=== PATIENT | female | born 1955 | race Caucasian/White ===

== ENCOUNTER → 2016-03-24 | Outpatient (CLI) | payer MEDICARE ==
--- NOTE | 2016-03-25 15:43 | WOMENS IMAGING REPORT ---
EXAM DESCRIPTION: BILAT SCREENING MAMMO W/CAD COMPLETED DATE/TIME: 03/25/2016 3:19 pm REASON FOR STUDY: ROUTINE BILATERAL SCREENIG;Z12.31 Z12.31 ENCNTR SCREEN MAMMOGRAM FOR MALIGNANT NE OPLASM OF MARGUERITE COMPARISON: 2008 to 2014 TECHNIQUE: Standard craniocaudal and mediolateral oblique views of each breast recorded using CNG-Onea l acquisition. LIMITATIONS: None. FINDINGS: No masses, calcifications or architectural distortion. No areas of suspicion. Read with the assistance of CAD. .[facility] - R2 Cenova Version 1.3 .[facility] - R2 Cenova Version 1.3 .[facility] - R2 Cenova Version 2.4 .[facility] [place] - R2 Cenova Version 2.4 .[facility] - R2 Boat Joiner Helper Version 9.2 BREAST DENSITY: b. There are scattered areas of fibroglandular density. BIRAD: 1 NEGATIVE RECOMMENDATION: ROUTINE SCREENING COMMENT: PATIENT NOTIFIED BY LETTER. The [employer] recommends an annual screening mammogram for women aged 40 years or over. Each patient will receive a reminder prior to the anniversary date of her mammogram. The [employer] (ACR) has developed recommendations for screening MRI of the breast s in certain patient populations, to be used in conjunction with mammography. Breast MRI surveillanc e may be appropriate for women with more than 20% lifetime risk of developing breast cancer as deter mined by genetic testing, significant family history of the disease, or history of mantle radiation f or Hodgkins Disease. ACR Practice Guidelines 2008. TECHNICAL DOCUMENTATION: FINDING NUMBER: (1) ASSESSMENT: (1) JOB ID: [id number] [employer]- All Rights Reserved
== END ==
LOC: WI 13:07
PROVIDERS: ATTEND Internal Medicine
DX: Z12.31 Encounter for screening mammogram for malignant neoplasm of breast (principal)
CPT/HCPCS: 77067; G0202

== ENCOUNTER → 2016-08-12 | Outpatient (CLI) | payer MEDICARE ==
--- NOTE | 2016-08-12 13:22 | RADIOLOGY REPORT (SQ) ---
EXAM DESCRIPTION: CAROTID DOPPLER COMPLETED DATE/TIME: 08/12/2016 11:41 am REASON FOR STUDY: RIGHT BRUIT R09.89 OTH SYMPTOMS AND SIGNS INVOLVING THE CIRC AND RESP SY COMPARISON: None. TECHNIQUE: Grayscale ultrasound, Doppler velocity and spectra, and color Doppler images acquired of the extra-cranial carotid and vertebral arteries. Images stored on PACS. LIMITATIONS: None. FINDINGS: RIGHT CAROTID CCA Velocities: Within normal limits. ICA Velocities Peak systolic 0.97 m/s. End diastolic 0.23 m/s. Proximal ICA/CCA peak systolic ratio 0.9. Heterogeneous plaque bulb and proximal ICA. LEFT CAROTID CCA Velocities: Within normal limits. ICA Velocities Peak systolic 1.22 m/s. End diastolic 0.29 m/s. Proximal ICA/CCA peak systolic ratio 1.0. Heterogeneous plaque in the bulb and proximal ICA. VERTEBRAL ARTERIES: Antegrade flow. Normal waveforms. SUBCLAVIAN ARTERIES: Not imaged. OTHER: No other significant finding. IMPRESSION: NO HEMODYNAMICALLY SIGNIFICANT STENOSIS. COMMENT: Quality ID #[id number]: Velocity criteria are extrapolated from the diameter data as defined by t he Society of Radiologists in Ultrasound Consensus Conference. Radiology 2003: 229; 340-346. TECHNICAL DOCUMENTATION: JOB ID: [id number] [employer]- All Rights Reserved
== END ==
LOC: SP 10:45
PROVIDERS: ATTEND Family Medicine
DX: R09.89 Other specified symptoms and signs involving the circulatory and respiratory systems (principal)
CPT/HCPCS: 93880

== ENCOUNTER 2016-12-10 11:26 | Emergency (ER) | payer MEDICARE ==
--- NOTE | 2016-12-10 11:51 | ER Document Report ---
ED Medical Screen (RME) - General Chief Complaint: Abdominal Pain Stated Complaint: LEFT SIDE PAIN Time Seen by Provider: 12/10/16 11:49 Notes: Patient states she has Marfan's and has had a previous aortic dissection treated at [place]. This was in 2009. She states she started today with left- sided chest pain that feels similar to when she had a dissection. TRAVEL OUTSIDE OF THE [place] IN LAST 30 DAYS: No - Related Data Allergies/Adverse Reactions: No Known Allergies Allergy (Verified 11/18/15 03:22) Past Medical History - Past Medical History Cardiac Medical History: Reports: Hx Coronary Artery Disease - stent, Hx Hypertension Denies: Hx Heart Attack Pulmonary Medical History: Reports: Hx COPD, Hx Pneumonia Denies: Hx Asthma, Hx Bronchitis Neurological Medical History: Denies: Hx Cerebrovascular Accident, Hx Seizures Renal/ Medical History: Denies: Hx Peritoneal Dialysis Malignancy Medical History: Reports: Hx Lung Cancer - remission Musculoskeltal Medical History: Reports Hx Arthritis Psychiatric Medical History: Reports: Hx Depression Past Surgical History: Reports: Hx Cardiac Surgery, Hx Cholecystectomy, Hx Coronary Stent, Hx Hysterectomy - Immunizations Hx Diphtheria, Pertussis, Tetanus Vaccination: Yes Physical Exam - Vital signs Vitals: Temp Pulse Resp BP Pulse Ox 97.3 F 63 16 177/61 H 100 12/10/16 11:12/10/16 11:12/10/16 11:12/10/16 11:12/10/16 11:29 Course - Vital Signs Vital signs: Temp Pulse Resp BP Pulse Ox 97.3 F 63 16 177/61 H 100 12/10/16 11:29 12/10/16 11:29 12/10/16 11:29 12/10/16 11:29 12/10/16 11:29
[2016-12-10 12:30] LABS: ABSOLUTE EOSINOPHILS # (AUTO) 0.1 10^3/uL (0.0-0.6); ABSOLUTE LYMPHOCYTES (AUTO) 0.9 10^3/uL (0.5-4.7); ABSOLUTE MONOCYTES (AUTO) 0.2 10^3/uL (0.1-1.4); BASOPHILS % (AUTO) 0.8 % (0-2); EOSINOPHILS % (AUTO) 1.7 % (0-6); HEMATOCRIT 39.8 % (36.0-47.0); HEMOGLOBIN 13.6 g/dL (12.0-15.5); LYMPHOCYTES % (AUTO) 28.6 % (13-45); MEAN CORPUSCULAR HEMOGLOBIN 31.4 pg (27.0-33.4); MEAN CORPUSCULAR HGB CONC 34.1 g/dL (32.0-36.0); MEAN CORPUSCULAR VOLUME 92 fl (80-97); MONOCYTES % (AUTO) 7.4 % (3-13); RED BLOOD COUNT 4.32 10^6/uL (3.72-5.28); RED CELL DISTRIBUTION WIDTH 13.1 % (11.5-14.0); SEGMENTED NEUTROPHILS % (AUTO) 61.5 % (42-78); WHITE BLOOD COUNT 3.3 10^3/uL (4.0-10.5)
--- NOTE | 2016-12-10 12:42 | EKG REPORT ---
SEVERITY:- ABNORMAL ECG - SINUS RHYTHM ATRIAL PREMATURE COMPLEX RIGHT BUNDLE BRANCH BLOCK : Confirmed by: Jarret Dang MD 10-Dec-2016 12:41:11
[2016-12-10 12:47] LABS: ALANINE AMINOTRANSFERASE 12 U/L (9-52); ALKALINE PHOSPHATASE 182 U/L (38-126); ANION GAP 11 (5-19); ASPARTATE AMINO TRANSFERASE 15 U/L (14-36); BILIRUBIN,DIRECT 0.3 mg/dL (0.0-0.4); BILIRUBIN,TOTAL 0.4 mg/dL (0.2-1.3); BLOOD UREA NITROGEN 10 mg/dL (7-20); CARBON DIOXIDE 26 mmol/L (22-30); CHLORIDE 103 mmol/L (98-107); CREATININE RESULT 0.62 mg/dL (0.52-1.25); GLUCOSE 81 mg/dL (75-110); POTASSIUM 3.9 mmol/L (3.6-5.0); SODIUM 140.3 mmol/L (137-145); TOTAL PROTEIN 6.5 g/dL (6.3-8.2)
[2016-12-10] MEDS ORDERED: MORPHINE SULFATE 10 MG/ML INJ IV ONE ×3 (12:54→15:42)
--- NOTE | 2016-12-10 14:31 | RADIOLOGY REPORT (SQ) ---
EXAM DESCRIPTION: CTA CHEST; CTA ABDOMEN COMPLETED DATE/TIME: 12/10/2016 1:40 pm REASON FOR STUDY: marfans w/hx dissection COMPARISON: None. TECHNIQUE: CT scan of the chest performed using helical scanning technique with dynamic intravenous contrast injection. Images reviewed with lung, soft tissue and bone windows. Reconstructed coronal and sagittal MPR images reviewed. CT angio of the abdomen was performed from the diaphragms through the iliac bifurcations, using helic al technique with dynamic contrast injection. Images reviewed with lung soft tissue and bone windows . Reconstructed coronal and sagittal MPR images reviewed. No oral contrast Additional 3 dimensional post-processing performed to develop Maximal Intensity Projection images (AZ P). All images stored on PACS. All CT scanners at this facility use dose modulation, iterative reconstruction, and/or weight based d osing when appropriate to reduce radiation dose to as low as reasonably achievable (ALARA). [facility]: Dose Right [facility]: CareDose [facility]: Dose Right [facility]: Teradose 4D [facility]: [facility] [employer] CONTRAST TYPE AND DOSE: contrast/concentration: Isovue 370.00 mg/ml; Total Contrast Delivered: 65.0 ml; Total Saline Delivered: 76.0 ml Contrast bolus optimized for the pulmonary arteries. Not diagnostic for the aorta. RENAL FUNCTION: Creatinine 0.6 RADIATION DOSE: Up-to-date CT equipment and radiation dose reduction techniques were employed. CTDIv ol: 7.7 - 17.0 mGy. DLP: 741 mGy-cm. . LIMITATIONS: Contrast bolus optimized for the aorta, not the pulmonary arteries FINDINGS: A thoracic aortic dissection is present, with a stent graft along the descending thoracic aorta, distal to the origin of the great vessels. The ascending aorta is abnormal, with a dissection from the level of the aortic root extending throug h the origins of the great vessels. The false lumen opacifies with contrast, to the same degree as t he true lumen, in a similar manner as compared to CT angio chest 11/18/2015. Ascending aorta maximal diameter is 3.3 cm, similar compared to 11/18/2015. The ascending aorta dissection extends into the proximal brachiocephalic artery. The mid and distal brachiocephalic artery are normal. The left common carotid artery, left subclavian artery are unrema rkable. In the abdomen, the abdominal aorta is normal caliber without evidence of dissection. There is ather osclerotic calcification at the origin of the celiac and superior mesenteric arteries with about 50% diameter narrowing, stable. Proximal common iliac arteries have heavy atherosclerotic calcification with at least 50% diameter na rrowing on the right, stable. LUNGS AND PLEURA: No masses, infiltrates, pneumothorax. No pleural effusions, calcifications. Biapi ofelia pleural-parenchymal scarring. Basilar small bulla or blebs. AORTA AND GREAT VESSELS: As above HEART: No pericardial effusion. No significant coronary artery calcifications. PULMONARY ARTERIES: No gross pulmonary emboli. Limited contrast bolus. HILAR AND MEDIASTINAL STRUCTURES: No identified masses or abnormal nodes. HARDWARE: None in the chest. LIVER: Normal size. Small hepatic cysts. No masses or dilated ducts. Air in left-sided intrahepatic bile ducts likely post sphincterotomy. SPLEEN: Normal size. No focal lesions. PANCREAS: No masses. No significant calcifications. No adjacent inflammation or peripancreatic fluid collections. Pancreatic duct not dilated. GALLBLADDER: Surgically absent. ADRENAL GLANDS: No significant masses or asymmetry. RIGHT KIDNEY AND URETER: No mass, calculi or urinary tract obstruction. LEFT KIDNEY AND URETER: No mass, calculi or urinary tract obstruction. RETROPERITONEUM: No retroperitoneal adenopathy, hemorrhage or masses. BOWEL AND PERITONEAL CAVITY: No free intraperitoneal air or fluid large amount of stool in the ascen ding and transverse colon. Stomach, small bowel unremarkable. APPENDIX: Not visualized. BONES: No acute or significant finding. Lower lumbar fusion with hardware. Advanced degenerative di sc changes at L1-2, and L3-4. 3D MIPS: Confirm above findings. OTHER: No other significant finding. IMPRESSION: Stable thoracic aortic dissection No CT evidence of abdominal aortic aneurysm or dissection COMMENT: Quality ID # [id number]: Final reports with documentation of one or more dose reduction techniques (e.g., Automated exposure control, adjustment of the mA and/or kV according to patient size, use of iterative reconstruction technique) TECHNICAL DOCUMENTATION: JOB ID: [id number] [employer]- All Rights Reserved
--- NOTE | 2016-12-10 15:38 | ER Document Report ---
ED GI/ - General Chief Complaint: Abdominal Pain Stated Complaint: LEFT SIDE PAIN Time Seen by Provider: 12/10/16 11:49 Mode of Arrival: Ambulatory Information source: Patient Notes: Female with Marfan's disease and history of an ascending thoracic aortic dissection who presents to the ER today for left-sided chest pain radiating straight through to her back and left arm that began approximately 1 week ago but has gradually worsened since that time. Patient had graft placed for her dissection in 2009 at [facility]. She denies any shortness of breath or nausea/ vomiting with this chest pain. She states that she has not been back to follow- up since that time because she "almost on the table" and is scared to go back. She denies any injury. TRAVEL OUTSIDE OF THE [place] IN LAST 30 DAYS: No - Related Data Allergies/Adverse Reactions: No Known Allergies Allergy (Verified 11/18/15 03:22) Past Medical History - General Information source: Patient - Social History Smoking Status: Unknown if Ever Smoked Frequency of alcohol use: Occasional Drug Abuse: None Family History: Reviewed & Not Pertinent Patient has suicidal ideation: No Patient has homicidal ideation: No - Past Medical History Cardiac Medical History: Reports: Hx Coronary Artery Disease - stent, Hx Hypertension Denies: Hx Heart Attack Pulmonary Medical History: Reports: Hx COPD, Hx Pneumonia Denies: Hx Asthma, Hx Bronchitis Neurological Medical History: Denies: Hx Cerebrovascular Accident, Hx Seizures Renal/ Medical History: Denies: Hx Peritoneal Dialysis Malignancy Medical History: Reports: Hx Lung Cancer - remission Musculoskeltal Medical History: Reports Hx Arthritis Psychiatric Medical History: Reports: Hx Depression Past Surgical History: Reports: Hx Cardiac Surgery, Hx Cholecystectomy, Hx Coronary Stent, Hx Hysterectomy - Immunizations Hx Diphtheria, Pertussis, Tetanus Vaccination: Yes Hx Pneumococcal Vaccination: 12/25/09 Review of Systems - Review of Systems Constitutional: No symptoms reported EENT: No symptoms reported Cardiovascular: See HPI Respiratory: No symptoms reported Gastrointestinal: No symptoms reported Genitourinary: No symptoms reported Female Genitourinary: No symptoms reported Musculoskeletal: No symptoms reported Skin: No symptoms reported Hematologic/Lymphatic: No symptoms reported Neurological/Psychological: No symptoms reported Physical Exam - Vital signs Vitals: Temp Pulse Resp BP Pulse Ox 97.3 F 63 16 177/61 H 100 12/10/16 11:29 12/10/16 11:29 12/10/16 11:29 12/10/16 11:29 12/10/16 11:29 - Notes Notes: PHYSICAL EXAMINATION: GENERAL: Uncomfortable appearing, but in no acute distress. HEAD: Atraumatic, normocephalic. EYES: Pupils equal round and reactive to light, extraocular movements intact, sclera anicteric, conjunctiva are normal. NECK: Normal range of motion, supple without lymphadenopathy LUNGS: CTAB and equal. No wheezes rales or rhonchi. HEART: Chest nontender to palpation, regular rate and rhythm without murmurs ABDOMEN: Soft, no tenderness. No guarding, no rebound BACK: no vertebral tenderness, normal ROM GI/: no CVA tenderness EXTREMITIES: Normal range of motion, no pitting edema. No cyanosis. NEUROLOGICAL: Cranial nerves grossly intact. Normal sensory/motor exams. PSYCH: Normal mood, normal affect. SKIN: Warm, Dry, normal turgor, no rashes or lesions noted Course - Re-evaluation Re-evalutation: 12/10/16 15:43 Patient's lab work is unremarkable today, including cardiac enzymes that are normal. EKG reveals a normal sinus rhythm no evidence of ischemia. I consulted with Dr. Quick who actually performed patient's aortic dissection surgery in 2009, he states that according to the CTA of the abdomen/pelvis and chest today her ascending thoracic aortic dissection is stable and there is no leak or acute change, he advises that she follow-up in the office, he has not seen her in 7 years. He made her an appointment for next week. Patient states that she will go to that. - Vital Signs Vital signs: Temp Pulse Resp BP Pulse Ox 98 F 63 15 121/56 L 98 12/10/16 16:44 12/10/16 16:44 12/10/16 16:44 12/10/16 16:44 12/10/16 16:44 - Laboratory Result Diagrams: 12/10/16 12:15 12/10/16 12:15 Laboratory results interpreted by me: 12/10/16 12/10/16 12:15 12:15 WBC 3.3 L Alkaline Phosphatase 182 H Discharge - Discharge Clinical Impression: History of aortic dissection Chest pain Qualifiers: Chest pain type: unspecified Qualified Code(s): R07.9 - Chest pain, unspecified Condition: Stable Disposition: HOME, SELF-CARE Additional Instructions: Call Dr. Quick' office TODAY at [phone] and make an appt next week! He has told the office to make this appt for you. Return immediately for any new or worsening symptoms. Follow up with primary care provider, call tomorrow to make followup appointment. Prescriptions: Oxycodone HCl/Acetaminophen [Percocet 5-325 mg Tablet] 1 tab PO Q4 PRN #15 tab PRN Reason:
[2016-12-10 16:44] VITALS: BP 121/56
[2016-12-10] MEDS ORDERED: ONDANSETRON 4 MG TAB.RAPDIS PO ONE (16:48)
== END 2016-12-10 17:01 | disposition home or self-care (01) ==
LOC: ER 11:26
DX: I71.01 Dissection of thoracic aorta (principal); Z98.890 Other specified postprocedural states; R07.9 Chest pain, unspecified; I25.10 Atherosclerotic heart disease of native coronary artery without angina pectoris; I10 Essential (primary) hypertension; J44.9 Chronic obstructive pulmonary disease, unspecified; Z95.5 Presence of coronary angioplasty implant and graft; Z87.01 Personal history of pneumonia (recurrent); Z85.3 Personal history of malignant neoplasm of breast
CPT/HCPCS: 93005; 99285; 36415; 85025; 80053; 84484; 71275; 74175; 93010; A9270; J2270; S0119

== ENCOUNTER → 2016-12-30 | Outpatient (CLI) | payer MEDICARE ==
--- NOTE | 2016-12-31 08:53 | RADIOLOGY REPORT (SQ) ---
EXAM DESCRIPTION: MRI CERVICAL SPINE WITHOUT COMPLETED DATE/TIME: 12/30/2016 7:20 pm REASON FOR STUDY: CERVICAL RADICULOPATHY M54.12 RADICULOPATHY, CERVICAL REGION COMPARISON: MRI cervical spine 04/09/2015 CT cervical spine 01/14/2012, 08/13/2011 TECHNIQUE: Sagittal and Axial imaging includes T1, T2, STIR and gradient echo sequences. LIMITATIONS: None. FINDINGS: ALIGNMENT: There is reversal of cervical lordosis, and mild anterolisthesis of C3 over C4 related to degenerative disc changes and facet arthropathy VERTEBRAE: Intact. BONE MARROW: Normal. No marrow replacement or reactive changes. DISCS: High-grade disc space loss of height with vacuum phenomenon at C4-5, C5-6, and C6-7. HARDWARE: None in the spine. CORD AND BASE OF BRAIN: Normal in size and signal intensity. SOFT TISSUES: No soft tissue masses. C1-C2: No significant spinal stenosis. C2-C3: No significant spinal stenosis or exit foraminal stenosis. C3-C4: Broad diffuse mild disc bulge and mild anterolisthesis of C3 over C4 without central stenosis. Moderate to high-grade right and left foraminal narrowing. C4-C5: Broad diffuse posterior disc bulge and bony spurring is present, partly effacing the ventral t hecal sac without abutting the cord or causing cord flattening. Borderline central canal narrowing. High-grade high-grade right and left foraminal narrowing from facet and uncovertebral hypertrophy. C5-C6: Broad diffuse posterior disc bulge and bony spurring partly effaces the ventral thecal sac wit hout abutting the cord or causing cord flattening. Mild central canal narrowing. High-grade bilater al foraminal narrowing from facet and uncovertebral hypertrophy C6-C7: Minimal posterior disc bulge and bony spurring is present without central stenosis. Moderate to high-grade bilateral foraminal narrowing is present from facet and uncovertebral hypertrophy. C7-T1: No significant spinal stenosis or exit foraminal stenosis. UPPER THORACIC: Incompletely imaged. No significant spinal stenosis or exit foraminal stenosis. OTHER: No other significant finding. IMPRESSION: Multilevel degenerative changes with multilevel foraminal stenosis, similar compared to previous studies TECHNICAL DOCUMENTATION: JOB ID: [id number]- All Rights Reserved
== END ==
LOC: RAD 18:32
PROVIDERS: ATTEND Physical Medicine & Rehabilitation Pain Medicine
DX: M54.12 Radiculopathy, cervical region (principal)
CPT/HCPCS: 72141

== ENCOUNTER 2017-10-25 05:01 | Observation (INO) | payer MEDICARE ==
[2017-10-25] MEDS ORDERED: NORMAL SALINE 500 ML IV ONE (05:30)
[2017-10-25] MEDS ORDERED: ONDANSETRON HCL INJ/PF 4 MG/2 ML SDV IV ONE ×3 (05:31→09:00)
--- NOTE | 2017-10-25 05:36 | ER Document Report ---
ED General - General Chief Complaint: Nausea/Vomiting Stated Complaint: STOMACH PAIN Time Seen by Provider: 10/25/17 05:27 Mode of Arrival: Ambulatory Information source: Patient Notes: Patient is a 62-year-old female who presents with chief complaint of abdominal pain with vomiting that started at 11 PM. Patient reports that she has been vomiting nonstop since then. Patient also reports sternal chest pain has developed after multiple episodes of vomiting. Patient does report history of CABG with one stent placement. Patient dry heaving during exam. Patient denies any fever. Exam: Tenderness to palpation to left chest wall. Generalized tenderness to palpation to entire abdomen. I have greeted and performed a rapid initial assessment of this patient. A comprehensive ED assessment and evaluation of the patient, analysis of test results and completion of the medical decision making process will be conducted by additional ED providers. Dictation of this chart was performed using voice recognition software; therefore, there may be some unintended grammatical errors. TRAVEL OUTSIDE OF THE [place] IN LAST 30 DAYS: No - Related Data Allergies/Adverse Reactions: No Known Allergies Allergy (Verified 10/25/17 05:04) Past Medical History - Social History Smoking Status: Never Smoker Family History: Reviewed & Not Pertinent Patient has suicidal ideation: No Patient has homicidal ideation: No - Past Medical History Cardiac Medical History: Reports: Hx Coronary Artery Disease - stent, Hx Hypertension Denies: Hx Heart Attack Pulmonary Medical History: Reports: Hx COPD, Hx Pneumonia Denies: Hx Asthma, Hx Bronchitis Neurological Medical History: Denies: Hx Cerebrovascular Accident, Hx Seizures Renal/ Medical History: Denies: Hx Peritoneal Dialysis Malignancy Medical History: Reports: Hx Lung Cancer - remission Musculoskeletal Medical History: Reports Hx Arthritis Psychiatric Medical History: Reports: Hx Depression Past Surgical History: Reports: Hx Cardiac Surgery, Hx Cholecystectomy, Hx Coronary Stent, Hx Hysterectomy - Immunizations Hx Diphtheria, Pertussis, Tetanus Vaccination: Yes Hx Pneumococcal Vaccination: 12/25/09 Physical Exam - Vital signs Vitals: Temp Pulse Resp BP Pulse Ox 97.6 F 77 20 123/51 L 100 10/25/17 05:05 10/25/17 05:05 10/25/17 05:05 10/25/17 05:05 10/25/17 05:05 Course - Vital Signs Vital signs: Temp Pulse Resp BP Pulse Ox 97.6 F 77 20 123/51 L 100 10/25/17 05:05 10/25/17 05:05 10/25/17 05:05 10/25/17 05:05 10/25/17 05:05
[2017-10-25 05:59] LABS: ABSOLUTE LYMPHOCYTES (AUTO) 0.8 10^3/uL (0.5-4.7); ABSOLUTE MONOCYTES (AUTO) 0.4 10^3/uL (0.1-1.4); ABSOLUTE NEUT (AUTO) 5.7 10^3/uL (1.7-8.2); BASOPHILS % (AUTO) 0.4 % (0-2); EOSINOPHILS % (AUTO) 0.5 % (0-6); HEMATOCRIT 42.9 % (36.0-47.0); HEMOGLOBIN 14.3 g/dL (12.0-15.5); LYMPHOCYTES % (AUTO) 11.4 % (13-45); MEAN CORPUSCULAR HEMOGLOBIN 30.2 pg (27.0-33.4); MEAN CORPUSCULAR HGB CONC 33.3 g/dL (32.0-36.0); MEAN CORPUSCULAR VOLUME 91 fl (80-97); MONOCYTES % (AUTO) 5.3 % (3-13); PLATELET COUNT 230 10^3/uL (150-450); RED BLOOD COUNT 4.73 10^6/uL (3.72-5.28); RED CELL DISTRIBUTION WIDTH 13.3 % (11.5-14.0); SEGMENTED NEUTROPHILS % (AUTO) 82.4 % (42-78); TOTAL CELLS COUNTED % (AUTO) 100 %; WHITE BLOOD COUNT 6.9 10^3/uL (4.0-10.5)
[2017-10-25] MEDS ORDERED: MORPHINE SULFATE 10 MG/ML INJ IV ONE ×2 (06:18→09:00)
[2017-10-25] MEDS ORDERED: NITROGLYCERIN 2% OINTMENT 1 GM PACKET TP ONE (06:18)
--- NOTE | 2017-10-25 06:23 | ER Document Report ---
ED General - General Chief Complaint: Nausea/Vomiting Stated Complaint: STOMACH PAIN Time Seen by Provider: 10/25/17 05:27 Mode of Arrival: Ambulatory Notes: This is a 62-year-old female patient uncontrolled hypertensive, history of Marfan's with history of aortic dissection status post surgery complaining of severe pain in her chest and abdomen. Nausea and vomiting. Has not been taking any of her medications. Seen by her local primary care doctor and was diagnosed with "infections in both my big toes". thinks that she has infection in her toes because they are turning colors. Patient states that her feet are painful all of the time having pain in her toes right now. Symptoms have been getting worse. Began complaining of worsening abdominal pain and chest pain today. Does not think that she is on any blood thinners but not certain. Only thing that she regularly takes is some oxycodone for her pain TRAVEL OUTSIDE OF THE [place] IN LAST 30 DAYS: No - HPI Onset: Just prior to arrival Onset/Duration: Sudden, Persistent - Related Data Allergies/Adverse Reactions: No Known Allergies Allergy (Verified 10/25/17 05:04) Past Medical History - General Information source: Patient - Social History Smoking Status: Never Smoker Cigarette use (# per day): No Frequency of alcohol use: None Drug Abuse: None Lives with: Family Family History: Reviewed & Not Pertinent Patient has suicidal ideation: No Patient has homicidal ideation: No - Past Medical History Cardiac Medical History: Reports: Hx Coronary Artery Disease - stent, Hx Hypertension, Other - Aortic dissection Denies: Hx Heart Attack Pulmonary Medical History: Reports: Hx COPD, Hx Pneumonia Denies: Hx Asthma, Hx Bronchitis Neurological Medical History: Denies: Hx Cerebrovascular Accident, Hx Seizures Renal/ Medical History: Denies: Hx Peritoneal Dialysis Malignancy Medical History: Reports: Hx Lung Cancer - remission Musculoskeletal Medical History: Reports Hx Arthritis Psychiatric Medical History: Reports: Hx Depression Past Surgical History: Reports: Hx Cardiac Surgery, Hx Cholecystectomy, Hx Coronary Stent, Hx Hysterectomy - Immunizations Hx Diphtheria, Pertussis, Tetanus Vaccination: Yes Hx Pneumococcal Vaccination: 12/25/09 Review of Systems - Review of Systems Constitutional: denies: Fever, Malaise, Weakness EENT: denies: Ear pain, Difficulty swallowing, Mouth pain Cardiovascular: Chest pain, Palpitations, Heart racing Respiratory: denies: Cough, Hurts to breathe, Short of breath, Wheezing Gastrointestinal: Abdominal pain, Nausea, Vomiting. denies: Diarrhea, Constipation Genitourinary: denies: Burning, Dysuria, Discharge Musculoskeletal: Back pain, Other - Pain, discoloration of toes. denies: Muscle pain, Leg swelling Skin: Change in color - Of her bilateral great toes. denies: Lesions, Rash Hematologic/Lymphatic: Blood clots. denies: Easy bleeding, Easy bruising Neurological/Psychological: denies: Confusion, Weakness, Numbness Physical Exam - Vital signs Vitals: Temp Pulse Resp BP Pulse Ox 97.6 F 77 20 123/51 L 100 10/25/17 05:05 10/25/17 05:05 10/25/17 05:05 10/25/17 05:05 10/25/17 05:05 Interpretation: Normal - General General appearance: Appears well, Alert In distress: Moderate - Due to pain in the chest and abdomen - HEENT Head: Normocephalic, Atraumatic Eyes: Normal Pupils: PERRL - Respiratory Respiratory status: No respiratory distress Chest status: Nontender Breath sounds: Normal Chest palpation: Normal - Cardiovascular Rhythm: Regular Heart sounds: Normal auscultation Murmur: No - Abdominal Inspection: Normal Distension: No distension Bowel sounds: Normal Tenderness: Nontender Organomegaly: No organomegaly - Back Back: Normal, Nontender - Extremities General upper extremity: Normal inspection, Nontender, Normal color, Normal ROM , Normal temperature General lower extremity: Nontender, Normal ROM, Normal temperature, Other - The bilateral lower extremity great toes have discoloration subungually on the great toes there are decreased pulses of the dorsalis pedis and posterior tibialis bilaterally.. No: Pooja's sign - Neurological Neuro grossly intact: Yes Cognition: Normal Orientation: AAOx4 Kee Coma Scale Eye Opening: Spontaneous [place] Coma Scale Verbal: Oriented [place] Coma Scale Motor: Obeys Commands [place] Coma Scale Total: 15 Speech: Normal Motor strength normal: LUE, RUE, LLE, RLE Sensory: Normal - Psychological Associated symptoms: Normal affect, Normal mood - Skin Skin Temperature: Warm Skin Moisture: Dry Skin Color: Normal Course - Re-evaluation Re-evalutation: 10/25/17 07:07 Definitely concerning presentation in the setting of chest pain and abdominal pain with history of aortic dissection and hypertension. Immediately put on Nitropaste just to attempt to get her blood pressure down quickly. Heart rate is in the 80s. May transition over to a Cardene drip shortly if there is any evidence on CT of dissection. Yet can see the stent placed in the aortic arch. Will order basic labs at this time. Pain control and reassess. 10/25/17 09:18 Laboratory 10/25/17 10/25/17 10/25/17 05:46 05:46 05:46 WBC 6.9 RBC 4.73 Hgb 14.3 Hct 42.9 MCV 91 MCH 30.2 MCHC 33.3 RDW 13.3 Plt Count 230 Seg Neutrophils % 82.4 H Lymphocytes % 11.4 L Monocytes % 5.3 Eosinophils % 0.5 Basophils % 0.4 Absolute Neutrophils 5.7 Absolute Lymphocytes 0.8 Absolute Monocytes 0.4 Absolute Eosinophils 0.0 Absolute Basophils 0.0 PT INR APTT Sodium 143.7 Potassium 3.8 Chloride 100 Carbon Dioxide 30 Anion Gap 14 BUN 14 Creatinine 0.63 Est GFR ( Amer) > 60 Est GFR (Non-Af Amer) > 60 Glucose 164 H Lactic Acid Calcium 9.6 Total Bilirubin 0.6 Direct Bilirubin 0.3 Neonat Total Bilirubin Not Reportable Neonat Direct Bilirubin Not Reportable Neonat Indirect Bili Not Reportable AST 39 H ALT 24 Alkaline Phosphatase 223 H Creatine Kinase 31 CK-MB (CK-2) 1.77 Troponin I < 0.012 Total Protein 8.2 Albumin 4.6 Lipase 19.0 L Urine Color Urine Appearance Urine pH Ur Specific Vaugh[place] Urine Protein Urine Glucose (UA) Urine Ketones Urine Blood Urine Nitrite Urine Bilirubin Urine Urobilinogen Ur Leukocyte Esterase Urine WBC (Auto) Urine RBC (Auto) U Hyaline Cast (Auto) Urine Mucus (Auto) Urine Ascorbic Acid 10/25/17 10/25/17 10/25/17 05:46 07:32 07:51 WBC RBC Hgb Hct MCV MCH MCHC RDW Plt Count Seg Neutrophils % Lymphocytes % Monocytes % Eosinophils % Basophils % Absolute Neutrophils Absolute Lymphocytes Absolute Monocytes Absolute Eosinophils Absolute Basophils PT 13.0 INR 0.94 APTT 27.5 Sodium Potassium Chloride Carbon Dioxide Anion Gap BUN Creatinine Est GFR ( Amer) Est GFR (Non-Af Amer) Glucose Lactic Acid 2.1 Calcium Total Bilirubin Direct Bilirubin Neonat Total Bilirubin Neonat Direct Bilirubin Neonat Indirect Bili AST ALT Alkaline Phosphatase Creatine Kinase CK-MB (CK-2) Troponin I Total Protein Albumin Lipase Urine Color YELLOW Urine Appearance CLEAR Urine pH 7.0 Ur Specific Vaugh[place] 1.036 Urine Protein NEGATIVE Urine Glucose (UA) NEGATIVE Urine Ketones NEGATIVE Urine Blood NEGATIVE Urine Nitrite NEGATIVE Urine Bilirubin NEGATIVE Urine Urobilinogen NEGATIVE Ur Leukocyte Esterase NEGATIVE Urine WBC (Auto) 1 Urine RBC (Auto) 1 U Hyaline Cast (Auto) 7 Urine Mucus (Auto) RARE Urine Ascorbic Acid NEGATIVE Chest X-Ray 10/25/17 05:40 IMPRESSION: No acute cardiopulmonary findings. Abdomen/Pelvis CTA 10/25/17 06:19 IMPRESSION: Minimal increase in diameter of the thoracic aorta at the level of the thoracic arch, now 3.8 cm in diameter (was 3.3 cm in diameter 12/10/2016). Otherwise stable appearance of chest abdomen pelvis compared to 12/10/2016 with previously treated thoracic aortic dissection. No abdominal aortic aneurysm or dissection Chest/Abdomen CTA 10/25/17 06:19 IMPRESSION: Minimal increase in diameter of the thoracic aorta at the level of the thoracic arch, now 3.8 cm in diameter (was 3.3 cm in diameter 12/10/2016). Otherwise stable appearance of chest abdomen pelvis compared to 12/10/2016 with previously treated thoracic aortic dissection. No abdominal aortic aneurysm or dissection CT reveals older findings of her aorta. No signs of bowel obstruction at this time. Patient's pain is much better. At this time will place in the hospital for repeat troponin, pain control and reassess. Consulted hospitalist who agrees to admit at this time. - Vital Signs Vital signs: Temp Pulse Resp BP Pulse Ox 97.6 F 77 13 139/57 H 97 10/25/17 05:05 10/25/17 05:05 10/25/17 08:00 10/25/17 06:39 10/25/17 08:00 - Laboratory Result Diagrams: 10/25/17 05:46 10/25/17 05:46 Laboratory results interpreted by me: 10/25/17 10/25/17 05:46 05:46 Seg Neutrophils % 82.4 H Lymphocytes % 11.4 L Glucose 164 H AST 39 H Alkaline Phosphatase 223 H Lipase 19.0 L - EKG Interpretation by [place] EKG shows normal: Intervals, QRS Complexes, ST-T Waves [place]/QRS: RBBB Discharge - Discharge Clinical Impression: Chest pain Qualifiers: Chest pain type: unspecified Qualified Code(s): R07.9 - Chest pain, unspecified Abdominal pain Qualifiers: Abdominal location: generalized Qualified Code(s): R10.84 - Generalized abdominal pain Condition: Good Disposition: ADMITTED INPATIENT Admitting Provider: Karma Condon Unit Admitted: Telemetry
[2017-10-25 06:29] LABS: INTERNATIONAL RATION (INR) 0.94
[2017-10-25 06:30] LABS: PARTIAL THROMBOPLASTIN TIME 27.5 SEC (23.5-35.8)
[2017-10-25 06:35] LABS: ALANINE AMINOTRANSFERASE 24 U/L (9-52); ALBUMIN 4.6 g/dL (3.5-5.0); ALKALINE PHOSPHATASE 223 U/L (38-126); ANION GAP 14 (5-19); ASPARTATE AMINO TRANSFERASE 39 U/L (14-36); BILIRUBIN,DIRECT 0.3 mg/dL (0.0-0.4); BILIRUBIN,TOTAL 0.6 mg/dL (0.2-1.3); BLOOD UREA NITROGEN 14 mg/dL (7-20); CALCIUM 9.6 mg/dL (8.4-10.2); CARBON DIOXIDE 30 mmol/L (22-30); CHLORIDE 100 mmol/L (98-107); CREATINE KINASE 31 U/L (30-135); GLUCOSE 164 mg/dL (75-110); POTASSIUM 3.8 mmol/L (3.6-5.0); SODIUM 143.7 mmol/L (137-145); TOTAL PROTEIN 8.2 g/dL (6.3-8.2)
[2017-10-25 06:47] LABS: CREATINE KINASE MB 1.77 ng/mL (<4.55)
[2017-10-25 06:49] LABS: TROPONIN I < 0.012 ng/mL
--- NOTE | 2017-10-25 06:52 | EKG REPORT ---
SEVERITY:- ABNORMAL ECG - SINUS RHYTHM RIGHT ATRIAL ABNORMALITY RIGHT BUNDLE BRANCH BLOCK : Confirmed by: Roger Rasmussen 25-Oct-2017 06:51:23
--- NOTE | 2017-10-25 07:05 | RADIOLOGY REPORT (SQ) ---
EXAM DESCRIPTION: XR CHEST 1 VIEW COMPLETED DATE/TME: 10/25/2017 05:40 CLINICAL HISTORY: 62 years Female, chest pain COMPARISON: CTA, November 18, 2015 NUMBER OF VIEWS/TECHNIQUE: 1/AP FINDINGS: Adequate lung volume, prominent interstitium, biapical capping, normal cardiac silhouette, aortic graft, sternotomy, right upper thoracic clips. IMPRESSION: No acute cardiopulmonary findings.
[2017-10-25 08:06] LABS: APPEARANCE,URINE CLEAR; BILIRUBIN,URINE NEGATIVE (NEGATIVE); COLOR,URINE YELLOW; GLUCOSE, URINE NEGATIVE (NEGATIVE); KETONES,URINE NEGATIVE (NEGATIVE); LEUKOCYTE ESTERASE,URINE NEGATIVE (NEGATIVE); NITRITE,URINE NEGATIVE (NEGATIVE); PROTEIN,URINE NEGATIVE (NEGATIVE); URINE SPECIFIC GRAVITY 1.036; UROBILINOGEN,URINE NEGATIVE mg/dL (<2.0)
--- NOTE | 2017-10-25 08:44 | RADIOLOGY REPORT (SQ) ---
EXAM DESCRIPTION: CTA CHEST; CTA ABDOMEN/PELVIS W WO COMPLETED DATE/TIME: 10/25/2017 7:24 am REASON FOR STUDY: pain, hx of dissection COMPARISON: CT chest abdomen pelvis 12/10/2016, 11/18/2015, 03/20/2013 CONTRAST TYPE AND DOSE: contrast/concentration: Isovue 350.00 mg/ml; Total Contrast Delivered: 53.0 ml; Total Saline Delivered: 78.0 ml RENAL FUNCTION: Creatinine 0.63 TECHNIQUE: CT angio of the chest performed using helical scanning technique with dynamic intravenous contrast injection. Images reviewed with lung, soft tissue and bone windows. Reconstructed coronal and sagittal MPR images through the thoracic aorta and pulmonary arteries reviewed. All images store d on PACS. CT angio of the abdomen and pelvis performed with intravenous and with oral contrastusing helical sca nning technique with dynamic intravenous contrast injection. Images reviewed with lung, soft tissue and bone windows. Reconstructed coronal and sagittal MPR through the abdominal aorta images reviewed . Delayed images for evaluation of the urinary system also acquired and evaluated. All images stored on PACS. All CT scanners at this facility use dose modulation, iterative reconstruction, and/or weight based d osing when appropriate to reduce radiation dose to as low as reasonably achievable (ALARA). [facility]: Dose Right [facility]: CareDose [facility]: Dose Right [facility]: Teradose 4D [facility]: [employer] RADIATION DOSE: CT Rad equipment meets quality standard of care and radiation dose reduction techniq ues were employed. CTDIvol: 8.9 - 14.2 mGy. DLP: 1951 mGy-cm. . LIMITATIONS: None. FINDINGS: CHEST: LUNGS AND PLEURA: Bilateral lung apex pleuroparenchymal scarring is present. No acute infiltrates. No pleural effusion. No pneumothorax. HILAR AND MEDIASTINAL STRUCTURES: No identified masses or abnormal nodes. HEART AND VASCULAR STRUCTURES: An aortic stent graft is present in the descending thoracic aorta, jus t distal to the origin of the great vessels. There is a thoracic aortic dissection involving the asc ending aorta, aorta at the origins of the great vessels, and proximal 2/3 of the descending thoracic aorta. Similar contrast enhancement of the true and false lumen along the aortic arch. Ascending ao rta near the aortic valve is stable in diameter, less than 2.5 cm in diameter. Ascending aorta at th e level of the origins of the great vessels is now 3.8 cm transverse (was 3.3 cm transverse 12/10/2016 ). Stable descending thoracic aorta 3.7 cm in greatest transverse diameter, stable. The dissection does extend into the proximal aspect brachiocephalic artery, stable compared to previo us exams. HARDWARE: Descending thoracic aortic stent graft THYROID AND OTHER SOFT TISSUES: No masses. No adenopathy. BONES: No significant finding. OTHER: No other significant finding. ABDOMEN AND PELVIS: LIVER: Normal size. No masses. No dilated ducts. 1.3 cm cyst left lobe liver SPLEEN: Normal size. No focal lesions. PANCREAS: No masses. No significant calcifications. No adjacent inflammation or peripancreatic fluid collections. Pancreatic duct not dilated. GALLBLADDER: Surgically absent ADRENAL GLANDS: No significant masses or asymmetry. RIGHT KIDNEY AND URETER: No solid masses. No significant calcification. No hydronephrosis or hydroure ter. LEFT KIDNEY AND URETER: No solid masses. No significant calcification. No hydronephrosis or hydrouret er. AORTA AND VESSELS: No abdominal aortic aneurysm or abdominal aortic dissection. Atherosclerotic aort oiliac calcification with about 50% narrowing of the celiac artery, SMA, and proximal common iliac ar teries. RETROPERITONEUM: No retroperitoneal adenopathy, hemorrhage or masses. BOWEL AND PERITONEAL CAVITY: No oral contrast. No CT evidence of bowel obstruction. No free intrape ritoneal air or fluid APPENDIX: Not visualized ABDOMINAL WALL: No masses. No hernias. PELVIS: No mass or free fluid. Normal bladder. Post hysterectomy BONES: Lower lumbar degenerative changes with fusion hardware at L4-5 and L5-S1. OTHER: No other significant finding. IMPRESSION: Minimal increase in diameter of the thoracic aorta at the level of the thoracic arch, no w 3.8 cm in diameter (was 3.3 cm in diameter 12/10/2016). Otherwise stable appearance of chest abdome n pelvis compared to 12/10/2016 with previously treated thoracic aortic dissection. No abdominal aortic aneurysm or dissection TECHNICAL DOCUMENTATION: JOB ID: [id number] Quality ID # [id number]: Final reports with documentation of one or more dose reduction techniques (e.g., Au tomated exposure control, adjustment of the mA and/or kV according to patient size, use of iterative reconstruction technique) 2010 [employer]- All Rights Reserved Reading location - IP/workstation name: [facility]
[2017-10-25] MEDS ORDERED: ACETAMINOPHEN 325 MG TABLET PO PRN (11:05)
[2017-10-25] MEDS ORDERED: BUTALB/ACETAMINOPHEN/CAFFEINE 1 TAB EACH PO PRN (11:20)
[2017-10-25] MEDS: ONDANSETRON HCL INJ/PF 4 MG/2 ML SDV IV PRN ×2 (12:40→18:37)
[2017-10-25] MEDS ORDERED: NITROGLYCERIN 0.4 MG/TAB 25 TAB/BOTTLE SL PRN (12:54)
[2017-10-25] MEDS ORDERED: NITROGLYCERIN 0.4 MG/TAB 25 TAB/BOTTLE ONE (13:13)
[2017-10-25] MEDS ORDERED: MAG HYDROX/AL HYDROX/SIMETH SUSP 30 ML UDCUP PO ONE (13:30)
[2017-10-25] MEDS ORDERED: LIDOCAINE 2% VISCOUS SOLN 20 ML UDCUP PO ONE (13:30)
[2017-10-25] MEDS ORDERED: METOCLOPRAMIDE HCL ORAL SOLN 10 MG/10 ML UDCUP PO ONE (13:30)
[2017-10-25] MEDS: MORPHINE SULFATE 10 MG/ML INJ IV PRN ×2 (14:31→20:38)
--- NOTE | 2017-10-25 17:23 | PDOC H&P ---
History of Present Illness Admission Date/PCP: 10/25/17 10:04 Patient complains of: chest pain History of Present Illness: JON JACKSON is a 62 year old female with a past medical history of Marfan syndrome, mitral valve prolapse, aortic dissection, prior aortic dissection repair and stent placement in 2009, hypertension, COPD not on home oxygen, early stage lung cancer with prior resection in 2004, GERD and history of partial small bowel obstruction who presented with chest pain. Patient says that last night around 11 PM, she had sudden midsternal chest pain which she describes as squeezing, 4-5/10 intensity, constant, nonradiating, and nonexertional. This happened after the came back from a late dinner on the restaurant. Patient says that this is a different type of chest pain she had when she had a aortic dissection which was a tearing pain radiating to her mid upper back. Patient reported associated diaphoresis at home. She denies shortness of breath. No palpitations. She says she did have 3 episodes of nonbloody nonbilious vomiting. She denies diarrhea. She also reports of a purplish discoloration of her big toes which he noticed 3 weeks ago. She says that when she stands, she develops purplish discoloration of her feet. She does report of on and off claudication in the past 3 weeks. Past Medical History Cardiac Medical History: Reports: Coronary Artery Disease - stent, Hypertension , Other - Aortic dissection Denies: Myocardial Infarction Pulmonary Medical History: Reports: Chronic Obstructive Pulmonary Disease (COPD) , Pneumonia Denies: Asthma, Bronchitis Neurological Medical History: Denies: Seizures Malignancy Medical History: Reports: Lung Cancer - remission Musculoskeltal Medical History: Reports: Arthritis Psychiatric Medical History: Reports: Depression Hematology: Denies: Anemia Past Surgical History Past Surgical History: Reports: Cholecystectomy, Coronary Stent, Hysterectomy Social History Lives with: Family Smoking Status: Former Smoker Cigarettes Packs Per Day: 1 Number of Years Smokin - [id number] smoker Frequency of Alcohol Use: Rare Hx Recreational Drug Use: No Drugs: None Hx Prescription Drug Abuse: No - Advance Directive Resuscitation Status: Full Code Family History Family History: Reviewed & Not Pertinent Medication/Allergy Home Medications: Butalb/Acetaminophen/Caffeine [Fioricet (50-325-40 mg) Tablet] 1 tab PO Q4HP PRN 10/25/17 Hydrocodone/Acetaminophen [[place] 10-325 mg Tablet] 1 tab PO Q6HP PRN 10/25/17 Allergies/Adverse Reactions: No Known Allergies Allergy (Verified 10/25/17 14:34) Review of Systems All systems: reviewed and no additional remarkable complaints except as stated - As mentioned in HPI. Physical Exam Vital Signs: Temp Pulse Resp BP Pulse Ox 97.6 F 77 17 116/54 L 95 10/25/17 05:05 10/25/17 05:05 10/25/17 16:01 10/25/17 16:00 10/25/17 16:01 General appearance: PRESENT: no acute distress, well-developed, well-nourished Head exam: PRESENT: atraumatic, normocephalic Eye exam: PRESENT: conjunctiva pink, EOMI, PERRLA. ABSENT: scleral icterus Mouth exam: PRESENT: moist, tongue midline Cardiovascular exam: PRESENT: systolic murmur - Grade 2/6 systolic murmur GI/Abdominal exam: PRESENT: other - Normoactive bowel sound, minimal direct tenderness on the right lower and left lower quadrants, no rebound tenderness Rectal exam: PRESENT: deferred Extremities exam: PRESENT: full ROM, other - Note of purplish discoloration of the big toes in both feet, full femoral pulses in both sites, full popliteal pulses, full dorsalis pedis pulses Neurological exam: PRESENT: alert, oriented to person, oriented to place, oriented to time Results Impressions: Chest X-Ray 10/25/17 05:40 IMPRESSION: No acute cardiopulmonary findings. Abdomen/Pelvis CTA 10/25/17 06:19 IMPRESSION: Minimal increase in diameter of the thoracic aorta at the level of the thoracic arch, now 3.8 cm in diameter (was 3.3 cm in diameter 12/10/2016). Otherwise stable appearance of chest abdomen pelvis compared to 12/10/2016 with previously treated thoracic aortic dissection. No abdominal aortic aneurysm or dissection Chest/Abdomen CTA 10/25/17 06:19 IMPRESSION: Minimal increase in diameter of the thoracic aorta at the level of the thoracic arch, now 3.8 cm in diameter (was 3.3 cm in diameter 12/10/2016). Otherwise stable appearance of chest abdomen pelvis compared to 12/10/2016 with previously treated thoracic aortic dissection. No abdominal aortic aneurysm or dissection Assessment & Plan - Diagnosis (1) Chest pain Qualifiers: Chest pain type: unspecified Qualified Code(s): R07.9 - Chest pain, unspecified Is this a current diagnosis for this admission?: Yes Plan: Patient has a typical chest pain. CT of the chest was done to rule out acute aortic dissection. CT shows an aortic stent graft in the descending thoracic aorta just distal to the origin of the great vessels. There is a thoracic aortic dissection involving involving the ascending aorta, ureter at the origins of the great vessels and proximal two thirds of the descending thoracic aorta. These are not new. The ascending aorta near the aortic valve is stable in diameter less than 2.5 cm in diameter. The dissection does extend into the proximal aspect brachiocephalic artery again stable compared to previous exams. The ascending aorta at the level of the origins of the great vessels has slightly increased from 3.3 cm in November 2016 to 3.8 cm. We will consult vascular surgery for further recommendations. She does have risk factors for CAD including a [id number] history of smoking. She denies prior history of myocardial infarction. She denies previous diagnosis of diabetes but she says that she had elevated sugars in the past. Initial troponin is normal. EKG is unrevealing aside from chronic right bundle branch block. We will continue to cycle cardiac enzymes and EKGs every 6 hours. Patient did verbalize she is not amenable to any stress testing. Consult cardiology for further recommendations. Continue nitro as needed and morphine for chest pain. (2) COPD (chronic obstructive pulmonary disease) Is this a current diagnosis for this admission?: Yes Plan: Controlled. Not in exacerbation. Breathing treatments as needed. (3) Hypertension Plan: Chilled. She does not take antihypertensives at home. (5) GERD (gastroesophageal reflux disease) Plan: Patient is a she takes Tums in occasionally Mylanta at home for her GERD. Will start patient on PPI. She said she only had minimal relief after being given a GI cocktail. (6) Hx SBO Is this a current diagnosis for this admission?: Yes Plan: Patient has a history of partial small bowel obstruction. CT of the abdomen and pelvis did not show any obstructive pattern. (7) PVD (peripheral vascular disease) with claudication Is this a current diagnosis for this admission?: Yes Plan: Patient has no previous diagnosis of PVD. Suspecting PVD. She complains of bilateral leg claudication and purplish discoloration of her big toes. She does have full peripheral pulses on examination of both extremities. We will go ahead and order an arterial duplex. - Time Time Spent: 50 to 70 Minutes
[2017-10-26] MEDS: MORPHINE SULFATE 10 MG/ML INJ IV PRN ×4 (04:49→22:16)
[2017-10-26] MEDS: ONDANSETRON HCL INJ/PF 4 MG/2 ML SDV IV PRN ×4 (04:49→19:51)
[2017-10-26] MEDS: PANTOPRAZOLE SODIUM 40 MG VIAL IV SCH (09:51)
[2017-10-26 11:01] LABS: ABSOLUTE EOSINOPHILS # (AUTO) 0.1 10^3/uL (0.0-0.6); ABSOLUTE MONOCYTES (AUTO) 0.2 10^3/uL (0.1-1.4); ABSOLUTE NEUT (AUTO) 1.7 10^3/uL (1.7-8.2); BASOPHILS % (AUTO) 0.6 % (0-2); EOSINOPHILS % (AUTO) 2.3 % (0-6); HEMATOCRIT 37.9 % (36.0-47.0); HEMOGLOBIN 12.6 g/dL (12.0-15.5); LYMPHOCYTES % (AUTO) 32.8 % (13-45); MEAN CORPUSCULAR HEMOGLOBIN 30.4 pg (27.0-33.4); MEAN CORPUSCULAR HGB CONC 33.2 g/dL (32.0-36.0); MEAN CORPUSCULAR VOLUME 92 fl (80-97); MONOCYTES % (AUTO) 5.3 % (3-13); PLATELET COUNT 188 10^3/uL (150-450); RED BLOOD COUNT 4.13 10^6/uL (3.72-5.28); RED CELL DISTRIBUTION WIDTH 13.5 % (11.5-14.0); TOTAL CELLS COUNTED % (AUTO) 100 %
[2017-10-26 11:24] LABS: ALANINE AMINOTRANSFERASE 23 U/L (9-52); ALBUMIN 3.7 g/dL (3.5-5.0); ALKALINE PHOSPHATASE 151 U/L (38-126); ANION GAP 9 (5-19); ASPARTATE AMINO TRANSFERASE 25 U/L (14-36); BILIRUBIN,DIRECT 0.2 mg/dL (0.0-0.4); BILIRUBIN,TOTAL 0.5 mg/dL (0.2-1.3); BLOOD UREA NITROGEN 7 mg/dL (7-20); CARBON DIOXIDE 29 mmol/L (22-30); CHLORIDE 104 mmol/L (98-107); GLUCOSE 101 mg/dL (75-110); PHOSPHORUS 3.7 mg/dL (2.5-4.5); POTASSIUM 3.8 mmol/L (3.6-5.0); TOTAL PROTEIN 6.6 g/dL (6.3-8.2)
--- NOTE | 2017-10-26 13:43 | EKG REPORT ---
SEVERITY:- ABNORMAL ECG - SINUS RHYTHM RIGHT BUNDLE BRANCH BLOCK : Confirmed by: Grecia Chahal MD 26-Oct-2017 13:43:00
--- NOTE | 2017-10-26 16:56 | PDOC CONSULTATION ---
Consultation Consult Date: 10/26/17 Attending physician:: MAITE FOX Consult reason:: A consultation was requested in this patient with known Marfan syndrome who has had work done in the past on the thoracic aortic dissection who presents with pain from the chest down. Currently the pain is well controlled. History of Present Illness Admission Date/PCP: 10/25/17 10:04 Patient complains of: Pain from the chest down. Severe. Seems to have been going on from about 24 October. No prior such episodes. She did have pain during previous episodes of dissection prior to 2009. She is being followed with yearly CAT scans at [facility] since a stent graft and open heart surgery at [place] in 2009. She apparently had a heart valve replaced at that time as well as the stent graft and what appears to have been ventricular aneurysm resection. There is mention of lung cancer resection. She is resolved from many years of heavy tobacco use. She has a heavy history of Marfan syndrome in her family, apparently some 15 family members have of complications of Marfan's. History of Present Illness: JON JACKSON is a 62 year old female Past Medical History Cardiac Medical History: Reports: Coronary Artery Disease - stent, Hypertension , Other - Aortic dissection Denies: Myocardial Infarction Pulmonary Medical History: Reports: Chronic Obstructive Pulmonary Disease (COPD) , Pneumonia Denies: Asthma, Bronchitis Neurological Medical History: Denies: Seizures Malignancy Medical History: Reports: Lung Cancer - remission Musculoskeltal Medical History: Reports: Arthritis Psychiatric Medical History: Reports: Depression Hematology: Denies: Anemia Past Surgical History Past Surgical History: Reports: Cholecystectomy, Coronary Stent, Hysterectomy Social History Lives with: Family Smoking Status: Former Smoker Cigarettes Packs Per Day: 1 Number of Years Smokin - [id number] smoker Frequency of Alcohol Use: Rare Hx Recreational Drug Use: No Drugs: None Hx Prescription Drug Abuse: No - Advance Directive Resuscitation Status: Full Code Family History Family History: Reviewed & Not Pertinent Parental Family History Reviewed: No Children Family History Reviewed: No Sibling(s) Family History Reviewed.: No Medication/Allergy Home Medications: Butalb/Acetaminophen/Caffeine [Fioricet (50-325-40 mg) Tablet] 1 tab PO Q4HP PRN 10/25/17 Hydrocodone/Acetaminophen [[place] 10-325 mg Tablet] 1 tab PO Q6HP PRN 10/25/17 Allergies/Adverse Reactions: No Known Allergies Allergy (Verified 10/25/17 14:34) Physical Exam Vital Signs: Temp Pulse Resp BP Pulse Ox 98.2 F 72 16 132/51 H 98 10/26/17 11:17 10/26/17 14:00 10/26/17 11:17 10/26/17 11:17 10/26/17 11:17 Intake & Output 10/25/17 10/26/17 10/27/17 06:59 06:59 06:59 Intake Total 360 758 Balance 360 758 Weight 70.2 kg Additional comments: Constitutional: Well-developed well-nourished lady. No apparent acute distress. Eyes: Mucous membranes pale and moist, pupils equal and reactive to light. Conjunctiva normal. Cornea normal. Spectacles in use. ENT: Hearing grossly normal. External pinna normal to inspection. Teeth mostly intact. Tongue normal to inspection. Chest: Shows a midline thoracotomy scar. Cardiac: Heart sounds 1 and 2 normal. There is a systolic murmur possibly radiating to the left carotid versus a carotid bruit. Respiratory breath sounds are present bilaterally, normal. Normal respiratory effort. Skin: Normal to inspection. No ulcers, normal turgor. Abdomen: Soft, nontender, flat. Liver and spleen are not palpably enlarged. Bowel sounds are normal. No hernia noted. Psychiatric: Judgment, memory, insight seem normal. Mood is pleasant and appropriate. Extremities: Upper extremities show normal range of movement. Pulses present noted to the radial arteries. Capillary refill normal. No cyanosis noted. No muscle wasting noted. Lower extremities show normal range of movement. Pulses present noted to the dorsalis pedis artery. Capillary refill normal. No cyanosis noted. No muscle wasting noted. Results Laboratory Results: 10/26/17 10:13 10/26/17 10:13 10/26/17 10/26/17 10:13 10:13 WBC 3.0 L RBC 4.13 Hgb 12.6 Hct 37.9 MCV 92 MCH 30.4 MCHC 33.2 RDW 13.5 Plt Count 188 Seg Neutrophils % 59.0 Lymphocytes % 32.8 Monocytes % 5.3 Eosinophils % 2.3 Basophils % 0.6 Absolute Neutrophils 1.7 Absolute Lymphocytes 1.0 Absolute Monocytes 0.2 Absolute Eosinophils 0.1 Absolute Basophils 0.0 Sodium 142.0 Potassium 3.8 Chloride 104 Carbon Dioxide 29 Anion Gap 9 BUN 7 Creatinine 0.58 Est GFR ( Amer) > 60 Est GFR (Non-Af Amer) > 60 Glucose 101 Calcium 9.0 Phosphorus 3.7 Magnesium 2.3 Total Bilirubin 0.5 AST 25 ALT 23 Alkaline Phosphatase 151 H Total Protein 6.6 Albumin 3.7 10/25/17 10/25/17 16:00 22:26 Troponin I < 0.012 < 0.012 Impressions: Chest X-Ray 10/25/17 05:40 IMPRESSION: No acute cardiopulmonary findings. Abdomen/Pelvis CTA 10/25/17 06:19 IMPRESSION: Minimal increase in diameter of the thoracic aorta at the level of the thoracic arch, now 3.8 cm in diameter (was 3.3 cm in diameter 12/10/2016). Otherwise stable appearance of chest abdomen pelvis compared to 12/10/2016 with previously treated thoracic aortic dissection. No abdominal aortic aneurysm or dissection Chest/Abdomen CTA 10/25/17 06:19 IMPRESSION: Minimal increase in diameter of the thoracic aorta at the level of the thoracic arch, now 3.8 cm in diameter (was 3.3 cm in diameter 12/10/2016). Otherwise stable appearance of chest abdomen pelvis compared to 12/10/2016 with previously treated thoracic aortic dissection. No abdominal aortic aneurysm or dissection Assessment & Plan - Diagnosis (1) Chronic thoracic aortic dissection Is this a current diagnosis for this admission?: Yes (2) Marfans syndrome Is this a current diagnosis for this admission?: Yes (3) Abdominal pain Qualifiers: Abdominal location: generalized Qualified Code(s): R10.84 - Generalized abdominal pain (4) COPD (chronic obstructive pulmonary disease) Is this a current diagnosis for this admission?: Yes - Plan Summary Plan Summary: With the radiographic findings of thoracic aortic dissection both ascending and some descending with a stent graft in place concern for coronary involvement. Apparently there are no such manifestations, the findings seem to be chronic. Her peripheral pulses are truly excellent with no sign of vascular compromise. Normal bowel sounds, nontender abdomen, no pain currently. No problems with food. Given these constellation of findings in this patient with Marfan's syndrome no urgent intervention seems needed. I do believe that if she stabilizes that she can probably be discharged in a day or 2. [facility] than her normal yearly [facility] scan in February. The patient and her seem unusually well informed and have a good grasp of the situation.
--- NOTE | 2017-10-26 20:10 | PDOC CONSULTATION ---
Consultation Consult Date: 10/25/17 Attending physician:: CASSANDRA ERWIN Consult reason:: Chest pain History of Present Illness Admission Date/PCP: 10/25/17 10:04 Patient complains of: Chest pain History of Present Illness: JON JACKSON is a 62 year old female with a past medical history of Marfan syndrome, mitral valve prolapse, aortic dissection, prior aortic dissection repair and stent placement in 2009, hypertension, COPD not on home oxygen, early stage lung cancer with prior resection in 2004, GERD and history of partial small bowel obstruction who presented with chest pain. Patient says that last night around 11 PM, she had sudden midsternal chest pain which she describes as squeezing, 4-5/10 intensity, constant, nonradiating, and nonexertional. This happened after the came back from a late dinner on the restaurant. Patient says that this is a different type of chest pain she had when she had a aortic dissection which was a tearing pain radiating to her mid upper back. Patient reported associated diaphoresis at home. She denies shortness of breath. No palpitations. She says she did have 3 episodes of nonbloody nonbilious vomiting. She denies diarrhea. She also reports of a purplish discoloration of her big toes which he noticed 3 weeks ago. She says that when she stands, she develops purplish discoloration of her feet. She does report of on and off claudication in the past 3 weeks. This history obtained by the hospitalist was reviewed and confirmed with the patient. Patient claims that during her previous heart surgery, no bypass was done but a stent was placed. Patient claims that currently she suffers from significant stress, psychological. She gets questionable history of myocardial infarction or CHF. Patient does have multiple family members suffering from Marfan syndrome. Past Medical History Cardiac Medical History: Reports: Coronary Artery Disease - stent, Hypertension , Other - Aortic dissection Denies: Myocardial Infarction Pulmonary Medical History: Reports: Chronic Obstructive Pulmonary Disease (COPD) , Pneumonia Denies: Asthma, Bronchitis Neurological Medical History: Denies: Seizures Malignancy Medical History: Reports: Lung Cancer - remission Musculoskeltal Medical History: Reports: Arthritis Psychiatric Medical History: Reports: Depression Hematology: Denies: Anemia Past Surgical History Past Surgical History: Reports: Cholecystectomy, Coronary Stent, Hysterectomy, Other - Describes aortic graft replacement for dissection of the aorta. Social History Information Source: Patient Lives with: Family Smoking Status: Former Smoker Cigarettes Packs Per Day: 1 Number of Years Smokin - [id number] smoker Frequency of Alcohol Use: Rare Hx Recreational Drug Use: No Drugs: None Hx Prescription Drug Abuse: No - Advance Directive Resuscitation Status: Full Code Surrogate healthcare decision maker:: Patient's is the surrogate decision-maker Family History Family History: Other - Strong family history of Marfan syndrome in multiple family members Parental Family History Reviewed: Yes Children Family History Reviewed: Yes Sibling(s) Family History Reviewed.: Yes Medication/Allergy Home Medications: Butalb/Acetaminophen/Caffeine [Fioricet (50-325-40 mg) Tablet] 1 tab PO Q4HP PRN 10/25/17 Hydrocodone/Acetaminophen [[place] 10-325 mg Tablet] 1 tab PO Q6HP PRN 10/25/17 Allergies/Adverse Reactions: No Known Allergies Allergy (Verified 10/25/17 14:34) Review of Systems Review of Systems: Please see history of present illness and past medical history as wall. Constitutional: No fever or chills reported. Head : No recent chronic headaches, recent head injury. Eyes: No recent eye pain, diplopia, redness, discharge, acute visual changes. Ears: No recent chronic ear pain, acute hearing loss, ear discharge. Oral cavity: No recent ulcerations, bleeding, oral cavity discomfort. Neck: No recent acute neck pain reported. Hematologic: No recent easy bruising or bleeding. Lymphatic: No recent lymph node enlargement reported. Cardiovascular system review: See history of present illness. Respiratory system review: No hemoptysis or blood clots in the lungs reported. Mild Shortness of breath on exertion Gastrointestinal system review: Negative for any recent acute hematemesis, melena. Genitourinary system review: No recent acute or chronic hematuria, flank pain, UTI etc. reported. Skin system review: Negative for any recent abnormal bruising, no rash, no pruritus reported. Neurologic: No prior history of strokes, mini strokes, seizure disorder. Psychologic: No history of major psychosis or major depression reported. Describes history of minor depression and significant mental stress. Musculoskeletal: Minor aches and pains reported. No acute joint swelling reported. Endocrine: No recent polyuria, polydipsia, recent heat or cold intolerance. Physical Exam Vital Signs: Temp Pulse Resp BP Pulse Ox 98.6 F 73 17 119/43 L 98 10/25/17 17:37 10/25/17 17:37 10/25/17 17:37 10/25/17 17:37 10/25/17 17:37 Intake & Output 10/24/17 10/25/17 10/26/17 06:59 06:59 06:59 Intake Total 120 Balance 120 Weight 70.2 kg Exam: GENERAL: well-nourished and in no acute distress. Alert and oriented x3, patient is very tall with long fingers and upper extremity. Patient does have a high arched palate. HEAD: Atraumatic, normocephalic. EYES: Pupils equal round and reactive to light, extraocular movements intact, sclera anicteric, conjunctiva are normal. ENT: TMs normal, nares patent, oropharynx clear without exudates. Moist mucous membranes. No oral ulcerations or bleeding gums noted NECK: supple without lymphadenopathy. Trachea is central. No cervical or axillary lymphadenopathy noted. Carotids are 2+, JVD WNL LUNGS: Respiration seems nonlabored, no significant accessory muscle action noted. Breath sounds clear to auscultation bilaterally and equal noted. No wheezes rales or rhonchi noted. No significant dullness noted on percussion. CHEST: Palpation of the chest wall shows no significant chest wall tenderness. 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 ABDOMEN: Soft, no significant tenderness appreciated, normoactive bowel sounds. No guarding, no rebound. No rigidity noted . No masses appreciated. EXTREMITIES: Pedal pulses are 1-2+, no calf tenderness noted. No clubbing or cyanosis. negative pedal edema noted NEUROLOGICAL: Focused neurological exam showed no significant neurologic deficit. Normal speech, no focal weakness appreciated. PSYCH: Normal mood, normal affect. Judgment and insight within normal limits. SKIN: No significant ecchymosis, skin is noted to be warm. MUSCULOSKELETAL EXAM: No significant acute joint swelling noted. Results Laboratory Results: 10/25/17 16:00 Troponin I < 0.012 EKG Comments: Shows sinus rhythm with right bundle branch block pattern but no acute ST-T wave changes Impressions: Chest X-Ray 10/25/17 05:40 IMPRESSION: No acute cardiopulmonary findings. Abdomen/Pelvis CTA 10/25/17 06:19 IMPRESSION: Minimal increase in diameter of the thoracic aorta at the level of the thoracic arch, now 3.8 cm in diameter (was 3.3 cm in diameter 12/10/2016). Otherwise stable appearance of chest abdomen pelvis compared to 12/10/2016 with previously treated thoracic aortic dissection. No abdominal aortic aneurysm or dissection Chest/Abdomen CTA 10/25/17 06:19 IMPRESSION: Minimal increase in diameter of the thoracic aorta at the level of the thoracic arch, now 3.8 cm in diameter (was 3.3 cm in diameter 12/10/2016). Otherwise stable appearance of chest abdomen pelvis compared to 12/10/2016 with previously treated thoracic aortic dissection. No abdominal aortic aneurysm or dissection Assessment & Plan - Diagnosis (1) Chest pain Qualifiers: Chest pain type: unspecified Qualified Code(s): R07.9 - Chest pain, unspecified Is this a current diagnosis for this admission?: Yes (2) Coronary artery disease Qualifiers: Coronary Disease-Associated Artery/Lesion type: [place] artery [place] vs. transplanted heart: [place] heart Associated angina: angina presence unspecified Qualified Code(s): I25.10 - Atherosclerotic heart disease of [place] coronary artery without angina pectoris Is this a current diagnosis for this admission?: Yes (3) COPD (chronic obstructive pulmonary disease) Qualifiers: COPD type: unspecified COPD Qualified Code(s): J44.9 - Chronic obstructive pulmonary disease, unspecified Is this a current diagnosis for this admission?: Yes (4) Chronic GERD Is this a current diagnosis for this admission?: Yes (5) Chronic thoracic aortic dissection Is this a current diagnosis for this admission?: Yes (6) Hypertension Qualifiers: Hypertension type: essential hypertension Qualified Code(s): I10 - Essential (primary) hypertension Is this a current diagnosis for this admission?: Yes (7) Marfans syndrome Is this a current diagnosis for this admission?: Yes - Notes Notes: Chest pain: Patient has known history of CAD with prior stent placement. Discussed various differential diagnosis. Have offered stress test patient somewhat reluctant to pursue this but will go ahead and put her on the list as I did discuss risk benefits of the stress test showing low risk of causing any problem because of Marfan syndrome especially if it is pharmacologic stress. Coronary artery disease: Patient gives history of stent placement. Recommend statin therapy, aspirin therapy. COPD: Patient advised to avoid secondhand smoking. Have advised bronchodilator and steroid therapy as needed. Chronic gastroesophageal reflux disease: Recommend proton pump inhibitors. Chronic thoracic aortic dissection: Currently stable. No symptoms suggestive of ongoing dissection. Hypertension: Recommend blood pressure to be kept at 135/85 or lower. Marfan syndrome: Patient claims regular follow-up advisement. She was asked to do that. - Time Time Spent: 30 to 50 Minutes - CODE STATUS was discussed, patient remains full code. Surrogate decision-maker unchanged. Multiple medical problems were addressed. More than 50% of the time spent coordinating care, discussing management plans with involved caregivers. Management plans discussed with involved personnels. Medical decision making was of moderate to high complexity , patient's has multiple comorbidities. Medications reviewed and adjusted accordingly: Yes
--- NOTE | 2017-10-26 20:15 | PDOC PROGRESS REPORT ---
Subjective Progress Note for:: 10/26/17 Subjective:: Patient seems to be doing better. Pt is experiencing slight epigastric discomfort. She has noted some nausea and some slight diarrhea. Patient denying any PND, orthopnea. Patient denied any sustained palpitations, dizziness, syncope, near syncope. Patient denying any fever chills. Patient denying any other significant discomfort. Patient is maintaining sinus rhythm. Review of systems: Rest review of systems negative. Medications: Medications have been reviewed. Reason For Visit: CHEST PAIN R/O ACS Physical Exam Vital Signs: Temp Pulse Resp BP Pulse Ox 98.8 F 71 18 123/51 L 96 10/26/17 16:00 10/26/17 16:00 10/26/17 16:00 10/26/17 16:00 10/26/17 16:00 Intake & Output 10/25/17 10/26/17 10/27/17 06:59 06:59 06:59 Intake Total 360 758 Balance 360 758 Weight 70.2 kg Exam: GENERAL: well-nourished and in no acute distress. Alert and oriented x3. Marfan syndrome musculoskeletal findings noted. HEAD: Atraumatic, normocephalic. EYES: Pupils equal round and reactive to light, extraocular movements intact, sclera anicteric, conjunctiva are normal. ENT: TMs normal, nares patent, oropharynx clear without exudates. Moist mucous membranes. No oral ulcerations or bleeding gums noted NECK: supple without lymphadenopathy. Trachea is central. No cervical or axillary lymphadenopathy noted. Carotids are 2+, JVD WNL LUNGS: Respiration seems nonlabored, no significant accessory muscle action noted. Breath sounds clear to auscultation bilaterally and equal noted. No wheezes rales or rhonchi noted. No significant dullness noted on percussion. CHEST: Palpation of the chest wall shows mild diffuse chest wall tenderness. 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 ABDOMEN: Soft, no significant tenderness appreciated, normoactive bowel sounds. No guarding, no rebound. No rigidity noted . No masses appreciated. EXTREMITIES: Pedal pulses are 1-2+, no calf tenderness noted. No clubbing or cyanosis. negative pedal edema noted NEUROLOGICAL: Focused neurological exam showed no significant neurologic deficit. Normal speech, no focal weakness appreciated. PSYCH: Normal mood, normal affect. Judgment and insight within normal limits. SKIN: No significant ecchymosis, skin is noted to be warm. MUSCULOSKELETAL EXAM: No significant acute joint swelling noted. Results Laboratory Results: 10/26/17 10:13 10/26/17 10:13 10/26/17 10/26/17 10:13 10:13 WBC 3.0 L RBC 4.13 Hgb 12.6 Hct 37.9 MCV 92 MCH 30.4 MCHC 33.2 RDW 13.5 Plt Count 188 Seg Neutrophils % 59.0 Lymphocytes % 32.8 Monocytes % 5.3 Eosinophils % 2.3 Basophils % 0.6 Absolute Neutrophils 1.7 Absolute Lymphocytes 1.0 Absolute Monocytes 0.2 Absolute Eosinophils 0.1 Absolute Basophils 0.0 Sodium 142.0 Potassium 3.8 Chloride 104 Carbon Dioxide 29 Anion Gap 9 BUN 7 Creatinine 0.58 Est GFR ( Amer) > 60 Est GFR (Non-Af Amer) > 60 Glucose 101 Calcium 9.0 Phosphorus 3.7 Magnesium 2.3 Total Bilirubin 0.5 AST 25 ALT 23 Alkaline Phosphatase 151 H Total Protein 6.6 Albumin 3.7 10/25/17 10/25/17 16:00 22:26 Troponin I < 0.012 < 0.012 EKG Comments: Shows sinus rhythm without any sustained tachycardia or bradycardia. Impressions: Chest X-Ray 10/25/17 05:40 IMPRESSION: No acute cardiopulmonary findings. Abdomen/Pelvis CTA 10/25/17 06:19 IMPRESSION: Minimal increase in diameter of the thoracic aorta at the level of the thoracic arch, now 3.8 cm in diameter (was 3.3 cm in diameter 12/10/2016). Otherwise stable appearance of chest abdomen pelvis compared to 12/10/2016 with previously treated thoracic aortic dissection. No abdominal aortic aneurysm or dissection Chest/Abdomen CTA 10/25/17 06:19 IMPRESSION: Minimal increase in diameter of the thoracic aorta at the level of the thoracic arch, now 3.8 cm in diameter (was 3.3 cm in diameter 12/10/2016). Otherwise stable appearance of chest abdomen pelvis compared to 12/10/2016 with previously treated thoracic aortic dissection. No abdominal aortic aneurysm or dissection Assessment & Plan - Diagnosis (1) Chest pain Qualifiers: Chest pain type: unspecified Qualified Code(s): R07.9 - Chest pain, unspecified Is this a current diagnosis for this admission?: Yes (2) Coronary artery disease Qualifiers: Coronary Disease-Associated Artery/Lesion type: hughes artery [place] vs. transplanted heart: hughes heart Associated angina: angina presence unspecified Qualified Code(s): I25.10 - Atherosclerotic heart disease of hughes coronary artery without angina pectoris Is this a current diagnosis for this admission?: Yes (3) COPD (chronic obstructive pulmonary disease) Qualifiers: COPD type: unspecified COPD Qualified Code(s): J44.9 - Chronic obstructive pulmonary disease, unspecified Is this a current diagnosis for this admission?: Yes (4) Chronic GERD Is this a current diagnosis for this admission?: Yes (5) Chronic thoracic aortic dissection Is this a current diagnosis for this admission?: Yes (6) Hypertension Qualifiers: Hypertension type: essential hypertension Qualified Code(s): I10 - Essential (primary) hypertension Is this a current diagnosis for this admission?: Yes (7) Marfans syndrome Is this a current diagnosis for this admission?: Yes - Notes Notes: Patient today declined to pursue a nuclear stress test. She is afraid to do it. Will try talk to her again tomorrow. Have started patient on low-dose beta -moe. 2D echo which was scheduled still pending. Dr. Aliyah Ornelas evaluation reviewed. No contraindication to beta-moe therapy. Chest pain: Patient has known history of CAD with prior stent placement. Discussed various differential diagnosis. Have offered stress test patient somewhat reluctant to pursue this but will go ahead and put her on the list as I did discuss risk benefits of the stress test showing low risk of causing any problem because of Marfan syndrome especially if it is pharmacologic stress. Coronary artery disease: Patient gives history of stent placement. Recommend statin therapy, aspirin therapy. COPD: Patient advised to avoid secondhand smoking. Have advised bronchodilator and steroid therapy as needed. Chronic gastroesophageal reflux disease: Recommend proton pump inhibitors. Chronic thoracic aortic dissection: Currently stable. No symptoms suggestive of ongoing dissection. Hypertension: Recommend blood pressure to be kept at 135/85 or lower. Marfan syndrome: Patient claims regular follow-up at [facility]. She was asked to do that. Patient reluctant to make any changes to medication prescribed from her previous physician. - Time Time with patient: Greater than 35 minutes - Significant time spent discussing risk benefits of nuclear stress test, causes of chest pain. CODE STATUS was discussed, patient remains full code. Surrogate decision-maker unchanged. Multiple medical problems were addressed. More than 50% of the time spent coordinating care, discussing management plans with involved caregivers. Management plans discussed with involved personnels. Medical decision making was of moderate to high complexity, patient's has multiple comorbidities. Medications reviewed and adjusted accordingly: Yes
[2017-10-27] MEDS: ONDANSETRON HCL INJ/PF 4 MG/2 ML SDV IV PRN ×5 (03:42→22:49)
[2017-10-27] MEDS: MORPHINE SULFATE 10 MG/ML INJ IV PRN ×4 (04:17→22:46)
[2017-10-27] MEDS: METOPROLOL SUCCINATE 25 MG TAB.SR.24H PO SCH (10:22)
[2017-10-27] MEDS: PANTOPRAZOLE SODIUM 40 MG VIAL IV SCH (10:27)
--- NOTE | 2017-10-27 17:56 | PDOC PROGRESS REPORT ---
Subjective Progress Note for:: 10/27/17 Subjective:: Patient seen today for follow-up of her evaluation. Patient states that she fuses to have a stress test and she does however want to continue and proceed with echocardiogram and Dopplers of her lower extremity. Patient states that she does not know why she still having the abdominal pain and that she came in originally for abdominal pain and nausea and vomiting. Discussed with patient that we will order a CT of the abdomen and pelvis for patient. However if the CT of the abdomen and pelvis is negative patient needs to follow- up with her GI doctor and have colonoscopy and further evaluation. Patient also advised that she is otherwise stable for discharge and needs to establish with a primary care physician. Patient also informed and advised that she has to follow-up with her vascular surgeon sooner than the one-year giovana as her aortic dissection has increased mildly to 3.8 cm. Currently patient is chest pain-free and denies any other concerns except for the abdominal pain. Reason For Visit: CHEST PAIN R/O ACS Physical Exam Vital Signs: Temp Pulse Resp BP Pulse Ox 98.4 F 66 18 134/46 H 97 10/27/17 15:47 10/27/17 15:47 10/27/17 15:47 10/27/17 15:47 10/27/17 15:47 Intake & Output 10/26/17 10/27/17 10/28/17 06:59 06:59 06:59 Intake Total 360 1268 523 Balance 360 1268 523 Weight 154 lb 12.232 oz 153 lb 0.013 oz General appearance: PRESENT: no acute distress, cooperative Head exam: PRESENT: atraumatic, normocephalic Eye exam: PRESENT: EOMI Ear exam: PRESENT: normal external ear exam Respiratory exam: PRESENT: clear to auscultation vilma Cardiovascular exam: PRESENT: RRR GI/Abdominal exam: PRESENT: soft. ABSENT: distended, tenderness Neurological exam: PRESENT: alert, awake, oriented to person, oriented to place , CN II-XII grossly intact Psychiatric exam: PRESENT: appropriate affect Results Laboratory Results: 10/26/17 10:13 10/26/17 10:13 10/25/17 10/25/17 16:00 22:26 Troponin I < 0.012 < 0.012 Impressions: Chest X-Ray 10/25/17 05:40 IMPRESSION: No acute cardiopulmonary findings. Abdomen/Pelvis CTA 10/25/17 06:19 IMPRESSION: Minimal increase in diameter of the thoracic aorta at the level of the thoracic arch, now 3.8 cm in diameter (was 3.3 cm in diameter 12/10/2016). Otherwise stable appearance of chest abdomen pelvis compared to 12/10/2016 with previously treated thoracic aortic dissection. No abdominal aortic aneurysm or dissection Chest/Abdomen CTA 10/25/17 06:19 IMPRESSION: Minimal increase in diameter of the thoracic aorta at the level of the thoracic arch, now 3.8 cm in diameter (was 3.3 cm in diameter 12/10/2016). Otherwise stable appearance of chest abdomen pelvis compared to 12/10/2016 with previously treated thoracic aortic dissection. No abdominal aortic aneurysm or dissection Assessment & Plan - Diagnosis (1) Chest pain Qualifiers: Chest pain type: unspecified Qualified Code(s): R07.9 - Chest pain, unspecified Is this a current diagnosis for this admission?: Yes Plan: She refuses stress test. (2) Aortic dissection, thoracic Is this a current diagnosis for this admission?: No Plan: Aggressive blood pressure control and follow-up with vascular surgeon upon discharge. (3) Hypertension Qualifiers: Hypertension type: essential hypertension Qualified Code(s): I10 - Essential (primary) hypertension Is this a current diagnosis for this admission?: Yes Plan: Pressures controlled no changes continue current therapy. (4) Abdominal pain Qualifiers: Abdominal location: generalized Qualified Code(s): R10.84 - Generalized abdominal pain Is this a current diagnosis for this admission?: Yes Plan: we will proceed with ct abd/ pelvis.
[2017-10-28] MEDS: MORPHINE SULFATE 10 MG/ML INJ IV PRN ×3 (05:33→18:31)
[2017-10-28] MEDS: ONDANSETRON HCL INJ/PF 4 MG/2 ML SDV IV PRN ×4 (05:33→21:44)
[2017-10-28] MEDS: PANTOPRAZOLE SODIUM 40 MG VIAL IV SCH (09:23)
[2017-10-28] MEDS: METOPROLOL SUCCINATE 25 MG TAB.SR.24H PO SCH (09:23)
--- NOTE | 2017-10-28 10:15 | XCELERA REPORT ---
[address] [address] Transthoracic Echocardiogram Report Name: JON JACKSON Age: 62 yrs Gender: Female : 1955 Patient Status: Inpatient Patient Location: [address] [place] [address] Study Date: 10/27/2017 03:53 PM Height: 72 in Weight: 153 lb BSA: 1.9 m2 Procedure: A complete two-dimensional transthoracic echocardiogram was performed (2D, M-mode, spectral and color flow Doppler). The study was technically adequate with some images being suboptimal in quality. Reason For Study: H/O AORTIC DISSECTION, MVP, CP Ordering Physician: DEMI GRACE Performed By: Blanca Cantrell Interpretation Summary The left ventricular ejection fraction is normal. There is borderline concentric left ventricular hypertrophy. The left ventricle is grossly normal size. Doppler measurements suggest pseudonormalized left ventricular relaxation, which is associated with grade II/IV or mild to moderate diastolic dysfunction Wall motion cannot be accurately commented on, but no definite regional wall motion abnormalities noted. The right ventricular systolic function is normal. The left atrial size is normal. The right atrium is normal in size There is a trace amount of mitral regurgitation There is no mitral valve stenosis. There is no aortic valve stenosis There is a trace amount of aortic regurgitation There is a trace or physiologic amount of tricuspid regurgitation Tricuspid regurgitation jet envelope not well defined to measure RV systolic pressure accurately. The aortic root is not well visualized. The inferior vena cava appeared normal and decreased > 50% with respiration (RAP 5-10 mmHg) There is no pericardial effusion. MMode/2D Measurements & Calculations RVDd: 2.7 cm LVIDd: 4.6 cm FS: 39.6 % Ao root diam: 2.6 cm IVSd: 0.84 cm LVIDs: 2.8 cm EDV(Teich): 98.8 ml Ao root area: 5.3 cm2 LVPWd: 0.77 cm ESV(Teich): 29.5 ml LA dimension: 3.0 cm EF(Teich): 70.2 % Doppler Measurements & Calculations MV E max eliz: MV P1/2t max eliz: Ao V2 max: LV V1 max P.3 cm/sec 95.8 cm/sec 126.4 cm/sec 5.0 mmHg MV A max eliz: MV P1/2t: 62.5 msec Ao max P.4 mmHg LV V1 max: 80.9 cm/sec MVA(P1/2t): 3.5 cm2 112.0 cm/sec MV E/A: 1.2 MV dec slope: 449.1 cm/sec2 MV dec time: 0.21 sec PA V2 max: TR max eliz: MV P1/2t-pr_phl: 81.9 cm/sec 234.6 cm/sec 62.5 msec PA max PG: TR max P.0 mmHg 2.7 mmHg Left Ventricle The left ventricle is grossly normal size. There is borderline concentric left ventricular hypertrophy. The left ventricular ejection fraction is normal. Doppler measurements suggest pseudonormalized left ventricular relaxation, which is associated with grade II/IV or mild to moderate diastolic dysfunction. Wall motion cannot be accurately commented on, but no definite regional wall motion abnormalities noted. Right Ventricle The right ventricle is grossly normal size. There is normal right ventricular wall thickness. The right ventricular systolic function is normal. Atria The right atrium is normal in size. The left atrial size is normal. Interarterial septum not well visualized and not well dopplered. Cannot comment on ASD/PFO presence. Mitral Valve The mitral valve is grossly normal. There is no mitral valve stenosis. There is a trace amount of mitral regurgitation. Aortic Valve The aortic valve is grossly normal. There is no aortic valve stenosis. There is a trace amount of aortic regurgitation. Tricuspid Valve The tricuspid valve is not well visualized, but is grossly normal. There is no tricuspid stenosis. There is a trace or physiologic amount of tricuspid regurgitation. Tricuspid regurgitation jet envelope not well defined to measure RV systolic pressure accurately. Pulmonic Valve The pulmonic valve is not well visualized. Great Vessels The aortic root is not well visualized. The inferior vena cava appeared normal and decreased > 50% with respiration (RAP 5-10 mmHg). Effusions There is no pericardial effusion. : DEMI GRACE > Roger Rasmussen
--- NOTE | 2017-10-28 12:57 | XCELERA REPORT ---
[address] [address] Lower Extremity Arterial Evaluation Name: JON JACKSON Age: 62 yrs Gender: Female : 1955 Patient Status: [facility] Study Date: 10/27/2017 04:08 PM Procedure: A color flow and duplex scan of the lower extremity arteries was performed bilaterally with velocity and waveform anaylsis. Ankle brachial indicies performed. Reason For Study: CLAUDICATION Ordering Physician: DEMI GRACE Performed By: Blanca Cantrell Measurements and Calculations Right Left ROLL FINISHER PSV 201.3 183.0 cm/sec Prox PFA PSV -138.8 -76.0 cm/sec Prox SFA PSV -143.2 -129.6cm/sec Mid SFA PSV -147.0 -165.0cm/sec Dist SFA PSV -98.7 -131.8cm/sec Prox Pop A PSV 56.1 80.1 cm/sec Dist HARRIET PSV 94.3 90.8 cm/sec Dist SLUDGE CONTROL ATTENDANT PSV 102.6 109.2 cm/sec Ceasar Pedis PSV 85.4 80.3 cm/sec Right Side Arterial Evaluation Normal velocity and triphasic waveforms noted from the Common Femoral artery to the Posterior Tibial artery. Biphasic int the Anterior tibial. 0-19% stenosis at the Anterior tibial. Ankle Brachial index is 1.00. Left Side Arterial Evaluation Normal velocity and triphasic waveforms noted from the Common Femoral artery to the infrageniculate vessels. Biphasic int the Anterior tibial. 0-19% stenosis at the Dorsalis Pedis. Ankle Brachial index is 0.98. Interpretation Summary Mild hemodynamically significant lesions in the bilateral lower extremities, on duplex imaging, at rest. : DEMI GRACE > Davion Ornelas
[2017-10-28 15:59] LABS: ABSOLUTE EOSINOPHILS # (AUTO) 0.1 10^3/uL (0.0-0.6); ABSOLUTE LYMPHOCYTES (AUTO) 1.4 10^3/uL (0.5-4.7); ABSOLUTE MONOCYTES (AUTO) 0.4 10^3/uL (0.1-1.4); BASOPHILS % (AUTO) 0.9 % (0-2); HEMATOCRIT 41.2 % (36.0-47.0); LYMPHOCYTES % (AUTO) 28.8 % (13-45); MEAN CORPUSCULAR VOLUME 91 fl (80-97); MONOCYTES % (AUTO) 8.2 % (3-13); RED BLOOD COUNT 4.52 10^6/uL (3.72-5.28); RED CELL DISTRIBUTION WIDTH 13.6 % (11.5-14.0); SEGMENTED NEUTROPHILS % (AUTO) 60.1 % (42-78); TOTAL CELLS COUNTED % (AUTO) 100 %
[2017-10-28 16:15] LABS: ALANINE AMINOTRANSFERASE 22 U/L (9-52); ALBUMIN 4.1 g/dL (3.5-5.0); ALKALINE PHOSPHATASE 148 U/L (38-126); ANION GAP 13 (5-19); ASPARTATE AMINO TRANSFERASE 18 U/L (14-36); BILIRUBIN,DIRECT 0.3 mg/dL (0.0-0.4); BILIRUBIN,TOTAL 0.4 mg/dL (0.2-1.3); BLOOD UREA NITROGEN 12 mg/dL (7-20); CALCIUM 9.3 mg/dL (8.4-10.2); CARBON DIOXIDE 26 mmol/L (22-30); CHLORIDE 102 mmol/L (98-107); GLUCOSE 87 mg/dL (75-110); PHOSPHORUS 4.5 mg/dL (2.5-4.5); PLATELET COUNT 203 10^3/uL (150-450); POTASSIUM 4.4 mmol/L (3.6-5.0); SODIUM 140.6 mmol/L (137-145); TOTAL PROTEIN 6.9 g/dL (6.3-8.2)
--- NOTE | 2017-10-28 22:03 | RADIOLOGY REPORT (SQ) ---
EXAM DESCRIPTION: CT ABD/PELVIS WITH IV ORAL COMPLETED DATE/TIME: 10/28/2017 7:58 pm REASON FOR STUDY: abdominal pain D50.8 OTHER IRON DEFICIENCY ANEMIAS R10.9 UNSPECIFIED ABDOMINAL P AIN COMPARISON: CTA chest 10/25/2017 CT abdomen 11/18/2015 TECHNIQUE: CT scan of the abdomen and pelvis performed using helical scanning technique with dynamic intravenous contrast injection. Oral contrast. Images reviewed with lung, soft tissue, and bone win dows. Reconstructed coronal and sagittal MPR images reviewed. Delayed images for evaluation of the ur inary system also acquired. All images stored on PACS. All CT scanners at this facility use dose modulation, iterative reconstruction, and/or weight based d osing when appropriate to reduce radiation dose to as low as reasonably achievable (ALARA). [facility]: Dose Right [facility]: CareDose [facility]: Dose Right [facility]: Teradose 4D [facility]: [facility] CONTRAST TYPE AND DOSE: contrast/concentration: Isovue 350.00 mg/ml; Total Contrast Delivered: 75.0 ml; Total Saline Delivered: 43.0 ml RENAL FUNCTION: Not recorded here RADIATION DOSE: CT Rad equipment meets quality standard of care and radiation dose reduction techniq ues were employed. CTDIvol: 6.1 - 8.1 mGy. DLP: 722 mGy-cm.. LIMITATIONS: Artifact from rods in the lumbar spine. FINDINGS: LOWER CHEST: There is a small bleb on the posterior left lung and a tiny bleb on the right . LIVER: Small hepatic cyst image 20. SPLEEN: Normal size. No focal lesions. PANCREAS: No masses. No significant calcifications. No adjacent inflammation or peripancreatic fluid collections. Pancreatic duct not dilated. GALLBLADDER: Surgically absent. ADRENAL GLANDS: No significant masses or asymmetry. RIGHT KIDNEY AND URETER: No solid masses. No significant calcifications. No hydronephrosis or hyd roureter. LEFT KIDNEY AND URETER: No solid masses. No significant calcifications. No hydronephrosis or hydr oureter. AORTA AND VESSELS: No aneurysm or dissection of the abdominal aorta. There is mild ectasia of the in frarenal abdominal aorta. The maximum diameter is 23 mm. RETROPERITONEUM: No retroperitoneal adenopathy, hemorrhage or masses. BOWEL AND PERITONEAL CAVITY: There is no bowel obstruction. Contrast is in the colon. No obvious sarabjit wel mass is seen. APPENDIX: Surgically absent. PELVIS: Uterus is absent. Urinary bladder is normal. No free fluid. ABDOMINAL WALL: No masses. No hernias. BONES: Rods in the lower lumbar spine. Screws extend through the pedicles. No osseous lesions. OTHER: No other significant finding. IMPRESSION: 1. There is no abdominal aortic aneurysm or dissection. There is mild ectasia of the i nfrarenal abdominal aorta. 2. No acute findings in the abdomen or pelvis. Findings as described. TECHNICAL DOCUMENTATION: JOB ID: [id number] Quality ID # [id number]: Final reports with documentation of one or more dose reduction techniques (e.g., Au tomated exposure control, adjustment of the mA and/or kV according to patient size, use of iterative reconstruction technique) 2010 [employer]- All Rights Reserved Reading location - IP/workstation name: [email or web address]
--- NOTE | 2017-10-29 00:11 | PDOC PROGRESS REPORT ---
Subjective Progress Note for:: 10/29/17 Subjective:: Pt admitted for nausea and vomiting and weakness. pt evaluated for any aortic dissection related complication. pt declined stress test. she has been c/o of abdominal pain and today we proceeded with CT of abd and pelvis to rule out any diverticular or hernia issues. d/w pt that we will discharge her once imagng study of her abdomen and pelvis is complete. i did not want to give her contrast and do one more imaging study however since she has had persistent abdominal pain and she still ask for pain medicine for it we will proceed if she agrees. pt agree with plan ct abd/pelvis is scheduled for today. Reason For Visit: CHEST PAIN R/O ACS Physical Exam Vital Signs: Temp Pulse Resp BP Pulse Ox 98.4 F 73 16 141/49 H 99 10/28/17 20:43 10/28/17 20:43 10/28/17 20:43 10/28/17 20:43 10/28/17 20:43 Intake & Output 10/27/17 10/28/17 10/29/17 06:59 06:59 06:59 Intake Total 1268 961 Balance 1268 961 Weight 153 lb 0.013 oz 152 lb 12.485 oz General appearance: PRESENT: no acute distress, cooperative Eye exam: PRESENT: EOMI Respiratory exam: PRESENT: clear to auscultation vilma. ABSENT: wheezes Cardiovascular exam: PRESENT: RRR GI/Abdominal exam: PRESENT: normal bowel sounds, soft. ABSENT: distended, tenderness Neurological exam: PRESENT: alert, awake Results Laboratory Results: 10/28/17 15:36 10/28/17 15:36 10/28/17 10/28/17 15:36 15:36 WBC 5.0 RBC 4.52 Hgb 14.0 Hct 41.2 MCV 91 MCH 31.0 MCHC 34.0 RDW 13.6 Plt Count 203 Seg Neutrophils % 60.1 Lymphocytes % 28.8 Monocytes % 8.2 Eosinophils % 2.0 Basophils % 0.9 Absolute Neutrophils 3.0 Absolute Lymphocytes 1.4 Absolute Monocytes 0.4 Absolute Eosinophils 0.1 Absolute Basophils 0.0 Sodium 140.6 Potassium 4.4 Chloride 102 Carbon Dioxide 26 Anion Gap 13 BUN 12 Creatinine 0.67 Est GFR ( Amer) > 60 Est GFR (Non-Af Amer) > 60 Glucose 87 Calcium 9.3 Phosphorus 4.5 Magnesium 2.1 Total Bilirubin 0.4 AST 18 ALT 22 Alkaline Phosphatase 148 H Total Protein 6.9 Albumin 4.1 10/25/17 10/25/17 16:00 22:26 Troponin I < 0.012 < 0.012 Impressions: Chest X-Ray 10/25/17 05:40 IMPRESSION: No acute cardiopulmonary findings. Abdomen/Pelvis CTA 10/25/17 06:19 IMPRESSION: Minimal increase in diameter of the thoracic aorta at the level of the thoracic arch, now 3.8 cm in diameter (was 3.3 cm in diameter 12/10/2016). Otherwise stable appearance of chest abdomen pelvis compared to 12/10/2016 with previously treated thoracic aortic dissection. No abdominal aortic aneurysm or dissection Chest/Abdomen CTA 10/25/17 06:19 IMPRESSION: Minimal increase in diameter of the thoracic aorta at the level of the thoracic arch, now 3.8 cm in diameter (was 3.3 cm in diameter 12/10/2016). Otherwise stable appearance of chest abdomen pelvis compared to 12/10/2016 with previously treated thoracic aortic dissection. No abdominal aortic aneurysm or dissection Abdomen/Pelvis CT 10/28/17 00:00 IMPRESSION: 1. There is no abdominal aortic aneurysm or dissection. There is mild ectasia of the infrarenal abdominal aorta. 2. No acute findings in the abdomen or pelvis. Findings as described. Assessment & Plan - Diagnosis (1) Chest pain Qualifiers: Chest pain type: unspecified Qualified Code(s): R07.9 - Chest pain, unspecified Is this a current diagnosis for this admission?: Yes Plan: pt has refused STRESS TEST. (2) Aortic dissection, thoracic Is this a current diagnosis for this admission?: No Plan: Aggressive blood pressure control and follow-up with vascular surgeon upon discharge. (3) Hypertension Qualifiers: Hypertension type: essential hypertension Qualified Code(s): I10 - Essential (primary) hypertension Is this a current diagnosis for this admission?: Yes Plan: continue metoprolol/ (4) Abdominal pain Qualifiers: Abdominal location: generalized Qualified Code(s): R10.84 - Generalized abdominal pain Is this a current diagnosis for this admission?: Yes Plan: ct abd and pelvis. negative d/c in am. - Time Time Spent with patient: Less than 15 minutes Anticipated discharge: Home - Inpatient Certification Based on my medical assessment, after consideration of the patient's comorbidities, presenting symptoms, or acuity I expect that the services needed warrant INPATIENT care.: No I certify that my determination is in accordance with my understanding of Medicare's requirements for reasonable and necessary INPATIENT services [42 CFR 412.3e].: No
[2017-10-29] MEDS: MORPHINE SULFATE 10 MG/ML INJ IV PRN ×2 (00:46→06:52)
[2017-10-29] MEDS: ONDANSETRON HCL INJ/PF 4 MG/2 ML SDV IV PRN ×2 (06:53→11:17)
--- NOTE | 2017-10-29 08:58 | PDOC DISCHARGE SUMMARY ---
General - Admit/Disc Date/PCP Admission Date/Primary Care Provider: 10/25/17 10:04 Discharge Date: 10/29/17 - Discharge Diagnosis (1) Chest pain Is this a current diagnosis for this admission?: Yes Summary: Patient refuses evaluation with stress test. 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 (2) Aortic dissection, thoracic Is this a current diagnosis for this admission?: Yes Summary: Patient to follow-up with vascular surgeon in the next 2 weeks. (3) Hypertension Is this a current diagnosis for this admission?: Yes Summary: Pressure has been well controlled. No changes in regimen (4) Abdominal pain Is this a current diagnosis for this admission?: Yes Summary: Suspect abdominal pain related due to opioid-induced constipation. We did do a CT of the abdomen and pelvis which was negative. Patient advised to follow-up with her primary care with referral to orchestra leader for further evaluation with colonoscopy. - Additional Information Resuscitation Status: Full Code Discharge Diet: Cardiac Discharge Activity: Activity As Tolerated Prescriptions: Hydrocodone/Acetaminophen [[place] 10-325 mg Tablet] 1 tab PO Q6HP PRN 5 Days #20 tablet PRN Reason: For Pain Metoprolol Succinate [Toprol Xl 25 mg Tab.sr] 12.5 mg PO DAILY #30 tab.sr.24h Omeprazole 40 mg PO DAILY 30 Days #30 capsule. [place] Medications: Butalb/Acetaminophen/Caffeine [Fioricet (50-325-40 mg) Tablet] 1 tab PO Q4HP PRN 10/25/17 Hydrocodone/Acetaminophen [[place] 10-325 mg Tablet] 1 tab PO Q6HP PRN 5 Days #20 tablet 10/29/17 Metoprolol Succinate [Toprol Xl 25 mg Tab.sr] 12.5 mg PO DAILY #30 tab.sr.24h Omeprazole 40 mg PO DAILY 30 Days #30 capsule. 10/29/17 History of Present Illness History of Present Illness: JON JACKSON is a 62 year old female Hospital Course Hospital Course: Patient is a 62-year-old white female admitted with complaints of nausea vomiting abdominal pain and chest pain. Patient also had complaints of purple toes. Patient has a history of Marfan syndrome and follows up with cardiology in [place]. Patient also has a history of aortic dissection and follows up with vascular specialist in [place]. During her stay patient was scheduled for cardiac stress test for evaluation of Ischemic heart disease. However patient refused stress test evaluation. Cardiology was consulted and patient did have an Echocardiogram. Patient also had bilateral lower extremity Dopplers which showed mild PAD. Patient hospital course was stable during the stay patient stated that she initially came in for abdominal pain which she has. Discussed with patient that we will proceed with CT of the abdomen and pelvis. CT of the abdomen and pelvis was done yesterday results have been negative patient is to follow-up with her Shingles Roofer Helper for further outpatient evaluation of intermittent and ongoing abdominal pain per patient history. Patient is stable for discharge and is agreeable to plan. Physical Exam Vital Signs: Temp Pulse Resp BP Pulse Ox 97.8 F 69 15 122/44 L 98 10/29/17 03:47 10/29/17 07:00 10/29/17 03:47 10/29/17 03:47 10/29/17 03:47 Intake & Output 10/28/17 10/29/17 10/30/17 06:59 06:59 06:59 Intake Total 961 275 Balance 961 275 Weight 152 lb 12.485 oz 151 lb 3.794 oz General appearance: PRESENT: no acute distress, cooperative Head exam: PRESENT: atraumatic, normocephalic Eye exam: PRESENT: EOMI Ear exam: PRESENT: normal external ear exam Respiratory exam: PRESENT: clear to auscultation vilma. ABSENT: wheezes Cardiovascular exam: PRESENT: RRR Pulses: PRESENT: normal dorsalis pedis pul GI/Abdominal exam: PRESENT: normal bowel sounds, soft. ABSENT: distended, tenderness Extremities exam: ABSENT: pedal edema Neurological exam: PRESENT: alert, awake, oriented to person, oriented to place , oriented to time, CN II-XII grossly intact Psychiatric exam: PRESENT: normal mood Results Laboratory Results: 10/28/17 15:36 10/28/17 15:36 10/28/17 10/28/17 15:36 15:36 WBC 5.0 RBC 4.52 Hgb 14.0 Hct 41.2 MCV 91 MCH 31.0 MCHC 34.0 RDW 13.6 Plt Count 203 Seg Neutrophils % 60.1 Lymphocytes % 28.8 Monocytes % 8.2 Eosinophils % 2.0 Basophils % 0.9 Absolute Neutrophils 3.0 Absolute Lymphocytes 1.4 Absolute Monocytes 0.4 Absolute Eosinophils 0.1 Absolute Basophils 0.0 Sodium 140.6 Potassium 4.4 Chloride 102 Carbon Dioxide 26 Anion Gap 13 BUN 12 Creatinine 0.67 Est GFR ( Amer) > 60 Est GFR (Non-Af Amer) > 60 Glucose 87 Calcium 9.3 Phosphorus 4.5 Magnesium 2.1 Total Bilirubin 0.4 AST 18 ALT 22 Alkaline Phosphatase 148 H Total Protein 6.9 Albumin 4.1 10/25/17 10/25/17 16:00 22:26 Troponin I < 0.012 < 0.012 Impressions: Chest X-Ray 10/25/17 05:40 IMPRESSION: No acute cardiopulmonary findings. Abdomen/Pelvis CTA 10/25/17 06:19 IMPRESSION: Minimal increase in diameter of the thoracic aorta at the level of the thoracic arch, now 3.8 cm in diameter (was 3.3 cm in diameter 12/10/2016). Otherwise stable appearance of chest abdomen pelvis compared to 12/10/2016 with previously treated thoracic aortic dissection. No abdominal aortic aneurysm or dissection Chest/Abdomen CTA 10/25/17 06:19 IMPRESSION: Minimal increase in diameter of the thoracic aorta at the level of the thoracic arch, now 3.8 cm in diameter (was 3.3 cm in diameter 12/10/2016). Otherwise stable appearance of chest abdomen pelvis compared to 12/10/2016 with previously treated thoracic aortic dissection. No abdominal aortic aneurysm or dissection Abdomen/Pelvis CT 10/28/17 00:00 IMPRESSION: 1. There is no abdominal aortic aneurysm or dissection. There is mild ectasia of the infrarenal abdominal aorta. 2. No acute findings in the abdomen or pelvis. Findings as described. Qualifiers - * PATIENT BEING DISCHARGED WITH ANY OF THE FOLLOWING DIAGNOSIS: No VTE patient discharged on overlapping Therapy?: No Plan Time Spent: Less than 30 Minutes
[2017-10-29] MEDS: METOPROLOL SUCCINATE 25 MG TAB.SR.24H PO SCH (11:17)
[2017-10-29 11:53] LABS: ANION GAP 14 (5-19); BLOOD UREA NITROGEN 12 mg/dL (7-20); CALCIUM 9.4 mg/dL (8.4-10.2); CARBON DIOXIDE 27 mmol/L (22-30); CHLORIDE 102 mmol/L (98-107); GLUCOSE 61 mg/dL (75-110); POTASSIUM 3.8 mmol/L (3.6-5.0); SODIUM 142.9 mmol/L (137-145)
[2017-10-29 13:32] VITALS: BP 121/41
--- NOTE | 2017-10-29 20:01 | PDOC PROGRESS REPORT ---
Subjective Progress Note for:: 10/27/17 Subjective:: Patient seems to be doing better. Pt is denying any chest arm or neck discomfort. Patient denying any PND, orthopnea. Patient denied any sustained palpitations, dizziness, syncope, near syncope. Patient denying any fever chills. Patient denying any other significant discomfort. Patient is maintaining sinus rhythm. Review of systems: Rest review of systems negative. Medications: Medications have been reviewed. Reason For Visit: CHEST PAIN R/O ACS Physical Exam Vital Signs: Temp Pulse Resp BP Pulse Ox 98.4 F 79 18 134/46 H 97 10/27/17 15:47 10/27/17 19:00 10/27/17 15:47 10/27/17 15:47 10/27/17 15:47 Intake & Output 10/26/17 10/27/17 10/28/17 06:59 06:59 06:59 Intake Total 360 1268 523 Balance 360 1268 523 Weight 70.2 kg 69.4 kg Exam: GENERAL: well-nourished and in no acute distress. Alert and oriented x3. HEAD: Atraumatic, normocephalic. EYES: Pupils equal round and reactive to light, extraocular movements intact, sclera anicteric, conjunctiva are normal. ENT: TMs normal, nares patent, oropharynx clear without exudates. Moist mucous membranes. No oral ulcerations or bleeding gums noted NECK: supple without lymphadenopathy. Trachea is central. No cervical or axillary lymphadenopathy noted. Carotids are 2+, JVD WNL LUNGS: Respiration seems nonlabored, no significant accessory muscle action noted. Breath sounds clear to auscultation bilaterally and equal noted. No wheezes rales or rhonchi noted. No significant dullness noted on percussion. CHEST: Palpation of the chest wall mild diffuse chest wall tenderness. 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 ABDOMEN: Soft, no significant tenderness appreciated, normoactive bowel sounds. No guarding, no rebound. No rigidity noted . No masses appreciated. EXTREMITIES: Pedal pulses are 1-2+, no calf tenderness noted. No clubbing or cyanosis. negative pedal edema noted NEUROLOGICAL: Focused neurological exam showed no significant neurologic deficit. Normal speech, no focal weakness appreciated. PSYCH: Normal mood, normal affect. Judgment and insight within normal limits. SKIN: No significant ecchymosis, skin is noted to be warm. MUSCULOSKELETAL EXAM: No significant acute joint swelling noted. Patient noted to have long arms with arachnodactyly and other Marfan syndrome features. Results Laboratory Results: 10/26/17 10:13 10/26/17 10:13 10/25/17 10/25/17 16:00 22:26 Troponin I < 0.012 < 0.012 EKG Comments: Shows sinus rhythm without any sustained tachycardia or bradycardia. Impressions: Chest X-Ray 10/25/17 05:40 IMPRESSION: No acute cardiopulmonary findings. Abdomen/Pelvis CTA 10/25/17 06:19 IMPRESSION: Minimal increase in diameter of the thoracic aorta at the level of the thoracic arch, now 3.8 cm in diameter (was 3.3 cm in diameter 12/10/2016). Otherwise stable appearance of chest abdomen pelvis compared to 12/10/2016 with previously treated thoracic aortic dissection. No abdominal aortic aneurysm or dissection Chest/Abdomen CTA 10/25/17 06:19 IMPRESSION: Minimal increase in diameter of the thoracic aorta at the level of the thoracic arch, now 3.8 cm in diameter (was 3.3 cm in diameter 12/10/2016). Otherwise stable appearance of chest abdomen pelvis compared to 12/10/2016 with previously treated thoracic aortic dissection. No abdominal aortic aneurysm or dissection Assessment & Plan - Diagnosis (1) Chest pain Qualifiers: Chest pain type: unspecified Qualified Code(s): R07.9 - Chest pain, unspecified Is this a current diagnosis for this admission?: Yes (2) Coronary artery disease Qualifiers: Coronary Disease-Associated Artery/Lesion type: [place] artery [place] vs. transplanted heart: [place] heart Associated angina: angina presence unspecified Qualified Code(s): I25.10 - Atherosclerotic heart disease of [place] coronary artery without angina pectoris Is this a current diagnosis for this admission?: Yes (3) COPD (chronic obstructive pulmonary disease) Qualifiers: COPD type: unspecified COPD Qualified Code(s): J44.9 - Chronic obstructive pulmonary disease, unspecified Is this a current diagnosis for this admission?: Yes (4) Chronic GERD Is this a current diagnosis for this admission?: Yes (5) Chronic thoracic aortic dissection Is this a current diagnosis for this admission?: Yes (6) Hypertension Qualifiers: Hypertension type: essential hypertension Qualified Code(s): I10 - Essential (primary) hypertension Is this a current diagnosis for this admission?: Yes (7) Marfans syndrome Is this a current diagnosis for this admission?: Yes - Notes Notes: Patient refused to pursue a stress test. 2D echo is still pending. Chest pain: Patient has known history of CAD with prior stent placement. Discussed various differential diagnosis. Have offered stress test patient somewhat reluctant to pursue this but will go ahead and put her on the list as I did discuss risk benefits of the stress test showing low risk of causing any problem because of Marfan syndrome especially if it is pharmacologic stress. However patient continues to refuse to pursue a stress test. Discussed there is at least intermediate probability of her chest pain from underlying CAD and progression of disease. Coronary artery disease: Patient gives history of stent placement. Recommend statin therapy, aspirin therapy. COPD: Patient advised to avoid secondhand smoking. Have advised bronchodilator and steroid therapy as needed. Chronic gastroesophageal reflux disease: Recommend proton pump inhibitors. Chronic thoracic aortic dissection: Currently stable. No symptoms suggestive of ongoing dissection. Patient on regular follow-up at [facility]. Hypertension: Recommend blood pressure to be kept at 135/85 or lower. Recommended beta-moe therapy but patient reluctant to make any new changes. Marfan syndrome: Patient claims regular follow-up. - Time Time with patient: Greater than 35 minutes - CODE STATUS was discussed, patient remains full code. Surrogate decision-maker unchanged. Multiple medical problems were addressed. More than 50% of the time spent coordinating care, discussing management plans with involved caregivers. Management plans discussed with involved personnels. Medical decision making was of moderate to high complexity, patient's has multiple comorbidities. Medications reviewed and adjusted accordingly: Yes
--- NOTE | 2017-10-29 20:04 | PDOC PROGRESS REPORT ---
Subjective Progress Note for:: 10/28/17 Subjective:: Patient seems to be doing better. Pt is denying any chest arm or neck discomfort. Patient denying any PND, orthopnea. Patient denied any sustained palpitations, dizziness, syncope, near syncope. Patient denying any fever chills. Patient denying any other significant discomfort. Patient is maintaining sinus rhythm. Review of systems: Rest review of systems negative. Medications: Medications have been reviewed. Reason For Visit: CHEST PAIN R/O ACS Physical Exam Vital Signs: Temp Pulse Resp BP Pulse Ox 98.4 F 73 16 141/49 H 99 10/28/17 20:43 10/28/17 20:43 10/28/17 20:43 10/28/17 20:43 10/28/17 20:43 Intake & Output 10/27/17 10/28/17 10/29/17 06:59 06:59 06:59 Intake Total 1268 961 Balance 1268 961 Weight 69.4 kg 69.3 kg Exam: GENERAL: well-nourished and in no acute distress. Alert and oriented x3 HEAD: Atraumatic, normocephalic. EYES: Pupils equal round and reactive to light, extraocular movements intact, sclera anicteric, conjunctiva are normal. ENT: TMs normal, nares patent, oropharynx clear without exudates. Moist mucous membranes. No oral ulcerations or bleeding gums noted NECK: supple without lymphadenopathy. Trachea is central. No cervical or axillary lymphadenopathy noted. Carotids are 2+, JVD WNL LUNGS: Respiration seems nonlabored, no significant accessory muscle action noted. Breath sounds clear to auscultation bilaterally and equal noted. No wheezes rales or rhonchi noted. No significant dullness noted on percussion. CHEST: Palpation of the chest wall shows no significant chest wall tenderness. 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 ABDOMEN: Soft, no significant tenderness appreciated, normoactive bowel sounds. No guarding, no rebound. No rigidity noted . No masses appreciated. EXTREMITIES: Pedal pulses are 1-2+, no calf tenderness noted. No clubbing or cyanosis. negative pedal edema noted NEUROLOGICAL: Focused neurological exam showed no significant neurologic deficit. Normal speech, no focal weakness appreciated. PSYCH: Normal mood, normal affect. Judgment and insight within normal limits. SKIN: No significant ecchymosis, skin is noted to be warm. MUSCULOSKELETAL EXAM: No significant acute joint swelling noted. Marfan syndrome features noted as discussed on previous exam. Results Laboratory Results: 10/28/17 15:36 10/28/17 15:36 10/28/17 10/28/17 15:36 15:36 WBC 5.0 RBC 4.52 Hgb 14.0 Hct 41.2 MCV 91 MCH 31.0 MCHC 34.0 RDW 13.6 Plt Count 203 Seg Neutrophils % 60.1 Lymphocytes % 28.8 Monocytes % 8.2 Eosinophils % 2.0 Basophils % 0.9 Absolute Neutrophils 3.0 Absolute Lymphocytes 1.4 Absolute Monocytes 0.4 Absolute Eosinophils 0.1 Absolute Basophils 0.0 Sodium 140.6 Potassium 4.4 Chloride 102 Carbon Dioxide 26 Anion Gap 13 BUN 12 Creatinine 0.67 Est GFR ( Amer) > 60 Est GFR (Non-Af Amer) > 60 Glucose 87 Calcium 9.3 Phosphorus 4.5 Magnesium 2.1 Total Bilirubin 0.4 AST 18 ALT 22 Alkaline Phosphatase 148 H Total Protein 6.9 Albumin 4.1 10/25/17 10/25/17 16:00 22:26 Troponin I < 0.012 < 0.012 EKG Comments: Shows sinus rhythm without any sustained tachycardia or bradycardia Impressions: Chest X-Ray 10/25/17 05:40 IMPRESSION: No acute cardiopulmonary findings. Abdomen/Pelvis CTA 10/25/17 06:19 IMPRESSION: Minimal increase in diameter of the thoracic aorta at the level of the thoracic arch, now 3.8 cm in diameter (was 3.3 cm in diameter 12/10/2016). Otherwise stable appearance of chest abdomen pelvis compared to 12/10/2016 with previously treated thoracic aortic dissection. No abdominal aortic aneurysm or dissection Chest/Abdomen CTA 10/25/17 06:19 IMPRESSION: Minimal increase in diameter of the thoracic aorta at the level of the thoracic arch, now 3.8 cm in diameter (was 3.3 cm in diameter 12/10/2016). Otherwise stable appearance of chest abdomen pelvis compared to 12/10/2016 with previously treated thoracic aortic dissection. No abdominal aortic aneurysm or dissection Abdomen/Pelvis CT 10/28/17 00:00 IMPRESSION: 1. There is no abdominal aortic aneurysm or dissection. There is mild ectasia of the infrarenal abdominal aorta. 2. No acute findings in the abdomen or pelvis. Findings as described. Assessment & Plan - Diagnosis (1) Chest pain Qualifiers: Chest pain type: unspecified Qualified Code(s): R07.9 - Chest pain, unspecified Is this a current diagnosis for this admission?: Yes (2) Coronary artery disease Qualifiers: Coronary Disease-Associated Artery/Lesion type: [place] artery [place] vs. transplanted heart: [place] heart Associated angina: angina presence unspecified Qualified Code(s): I25.10 - Atherosclerotic heart disease of [place] coronary artery without angina pectoris Is this a current diagnosis for this admission?: Yes (3) COPD (chronic obstructive pulmonary disease) Qualifiers: COPD type: unspecified COPD Qualified Code(s): J44.9 - Chronic obstructive pulmonary disease, unspecified Is this a current diagnosis for this admission?: Yes (4) Chronic GERD Is this a current diagnosis for this admission?: Yes (5) Chronic thoracic aortic dissection Is this a current diagnosis for this admission?: Yes (6) Hypertension Qualifiers: Hypertension type: essential hypertension Qualified Code(s): I10 - Essential (primary) hypertension Is this a current diagnosis for this admission?: Yes (7) Marfans syndrome Is this a current diagnosis for this admission?: Yes - Notes Notes: 2D Echo reviewed. Patient questions were answered. Patient continues to refuse to undergo a stress test. 2D echo results shows normal LVEF. Surprisingly did not note any mitral valve prolapse or any aortic incompetence which I would have expected in patient with Marfan syndrome. Findings discussed with patient's and hospitalist. Chest pain: Patient has known history of CAD with prior stent placement. Discussed various differential diagnosis. Have offered stress test patient somewhat reluctant to pursue this but will go ahead and put her on the list as I did discuss risk benefits of the stress test showing low risk of causing any problem because of Marfan syndrome especially if it is pharmacologic stress. However patient continues to refuse to pursue a stress test. Discussed there is at least intermediate probability of her chest pain from underlying CAD and progression of disease. Coronary artery disease: Patient gives history of stent placement. Recommend statin therapy, aspirin therapy. COPD: Patient advised to avoid secondhand smoking. Have advised bronchodilator and steroid therapy as needed. Chronic gastroesophageal reflux disease: Recommend proton pump inhibitors. Chronic thoracic aortic dissection: Currently stable. No symptoms suggestive of ongoing dissection. Patient on regular follow-up at [facility]. Hypertension: Recommend blood pressure to be kept at 135/85 or lower. Recommended beta-moe therapy. Patient was started on metoprolol succinate 12.5 mg p.o. twice daily. Offered follow-up locally if she wished to follow-up with me. Marfan syndrome: Patient claims regular follow-up. Will sign off. Patient to let me know if you wish to pursue stress testing here. - Time Time with patient: Greater than 35 minutes - CODE STATUS was discussed, patient remains full code. Surrogate decision-maker unchanged. Multiple medical problems were addressed. More than 50% of the time spent coordinating care, discussing management plans with involved caregivers. Management plans discussed with involved personnels. Medical decision making was of moderate to high complexity, patient's has multiple comorbidities. Medications reviewed and adjusted accordingly: Yes
== END 2017-10-29 15:30 | disposition home or self-care (01) ==
LOC: ER 05:01 → EH 10:04 → INTOOBSV 10:04 → 5 16:29
PROVIDERS: ADMIT Family Medicine; ATTEND Family Medicine
DX: R07.9 Chest pain, unspecified (principal); Z53.29 Procedure and treatment not carried out because of patient's decision for other reasons; I71.01 Dissection of thoracic aorta; I10 Essential (primary) hypertension; R10.84 Generalized abdominal pain; R11.2 Nausea with vomiting, unspecified; I73.9 Peripheral vascular disease, unspecified; R61 Generalized hyperhidrosis; Q87.40 Marfan syndrome, unspecified; I25.10 Atherosclerotic heart disease of native coronary artery without angina pectoris; R06.02 Shortness of breath; I45.10 Unspecified right bundle-branch block; J44.9 Chronic obstructive pulmonary disease, unspecified; K21.9 Gastro-esophageal reflux disease without esophagitis; R01.1 Cardiac murmur, unspecified; R19.7 Diarrhea, unspecified; M54.9 Dorsalgia, unspecified; Z79.899 Other long term (current) drug therapy; Z87.19 Personal history of other diseases of the digestive system; Z98.890 Other specified postprocedural states; Z85.118 Personal history of other malignant neoplasm of bronchus and lung; Z90.2 Acquired absence of lung [part of]; Z82.79 Family history of other congenital malformations, deformations and chromosomal abnormalities; Z95.5 Presence of coronary angioplasty implant and graft; Z90.49 Acquired absence of other specified parts of digestive tract; Z90.710 Acquired absence of both cervix and uterus; Z87.891 Personal history of nicotine dependence; Z95.1 Presence of aortocoronary bypass graft
CPT/HCPCS: 93005 ×2; 96376; 99285; 96361; 96374; 96375; 36415 ×4; 82553; 82550; 83605; 83690; 83735 ×2; 84100 ×2; 85025 ×3; 85610; 85730; 80048; 80053 ×3; 81001; 84484; 83036; 93925 ×2; 93306; 71045; 71275; 74174; 74177; 93010 ×2; A9270 ×4; J3490 ×5; J2270 ×5; C9113 ×3; J2405 ×5; J7040; S0164

== ENCOUNTER → 2019-04-17 | Outpatient (CLI) | payer MEDICARE ==
--- NOTE | 2019-04-17 14:37 | WOMENS IMAGING REPORT ---
EXAM DESCRIPTION: 3D SCREENING MAMMO BILAT COMPLETED DATE/TIME: 04/17/2019 1:32 pm REASON FOR STUDY: Z12.31 SCREENING MAMMO Z12.31 ENCNTR SCREEN MAMMOGRAM FOR MALIGNANT NEOPLASM OF B RE COMPARISON: 2011 and subsequent. EXAM PARAMETERS: Standard craniocaudal and mediolateral oblique views of each breast recorded using digital acquisition and breast tomosynthesis. Read with the assistance of CAD. .[facility] - [employer] Captain Version 9.2 LIMITATIONS: None. FINDINGS: Findings present which are benign by mammographic criteria. No suspicious masses, calcific ations or architectural distortion. Pertinent benign findings: Focal asymmetry upper half left breast MLO view, mid depth. Stable appear ance. Benign mammographic findings may include one or more of the following: Smooth masses, popcorn/rim/coa rse calcifications, asymmetries, post-procedure changes, and lesions with long-standing stability. IMPRESSION: BENIGN MAMMOGRAPHIC FINDINGS. BIRADS 2 BREAST DENSITY: b. There are scattered areas of fibroglandular density. BIRAD: ASSESSMENT: 2 BENIGN FINDING(S) RECOMMENDATION: ROUTINE SCREENING COMMENT: The patient has been notified of the results by letter per SA requirements. Additional no tification policies are in place for contacting patient with suspicious or incomplete findings. Quality ID #[id number]: The [employer] [employer] recommends an annual screening mammogram for women aged 40 years or over. This facility utilizes a reminder system to ensure that all patients receive reminder letters, and/or direct phone calls for appointments. This includes reminders for routine scr eening mammograms, diagnostic mammograms, or other Breast Imaging Interventions when appropriate. Th is patient will be placed in the appropriate reminder system. TECHNICAL DOCUMENTATION: FINDING NUMBER: (1) ASSESSMENT: (1) JOB ID: [id number] [employer]- All Rights Reserved Reading location - IP/workstation name: [email or web address]
== END ==
LOC: WI 13:10
PROVIDERS: ATTEND Nurse Practitioner Family
DX: Z12.31 Encounter for screening mammogram for malignant neoplasm of breast (principal)
CPT/HCPCS: 77063; 77067